=== PATIENT | male | born 1945 | race Caucasian/White ===

== ENCOUNTER → 2019-07-09 | Outpatient (CLI) | payer MEDICARE, SELFPAY | PROVIDERS: Family Provider Family Medicine; Visit Provider Family Medicine | DX: R31.0 Gross hematuria (principal) | CPT/HCPCS: 74018 ==

== ENCOUNTER → 2020-01-09 16:25 | Outpatient (BNVA) | payer MEDICARE, SELFPAY | PROVIDERS: Family Provider Family Medicine; PCP Family Medicine; Visit Provider Family Medicine | DX: R03.0 Elevated blood-pressure reading, without diagnosis of hypertension (principal); R35.1 Nocturia; I71.4 Abdominal aortic aneurysm, without rupture | CPT/HCPCS: 80053; 80061; 83721; 84153; 85025 ==

== ENCOUNTER → 2020-01-10 16:47 | Outpatient (BNVA) | payer MEDICARE, SELFPAY | PROVIDERS: Family Provider Family Medicine; PCP Family Medicine; Visit Provider Family Medicine | DX: R03.0 Elevated blood-pressure reading, without diagnosis of hypertension (principal); R35.1 Nocturia; I71.4 Abdominal aortic aneurysm, without rupture; D64.9 Anemia, unspecified | CPT/HCPCS: 82728; 83550 ==

== ENCOUNTER 2020-01-24 07:04 | Outpatient (CLI) | payer MEDICARE, SELFPAY ==
--- NOTE | 2020-01-24 07:15 | USCV_ITS ---
Sancho Renee Age: 74 Gender: M : 1945 Exam Date: 01/24/2020 07:30 Ordering Phys: Lizzy Short DO Technologist: Liliana Chávez Exam Location: [facility] [place] Indication: AAA HISTORY: Diameter (cm) AP x Transverse x Length Velocity (cm/s) Waveform Prox Aorta: 1.88 x 2.22 x 88.70 Mid Aorta: 2.05 x 2.53 x 67.80 Triphasic Distal Aorta: 4.03 x 4.35 x 6.22 62.80 Triphasic Right Iliac Prox: 1.30 x 1.15 x 140.00 Triphasic Left Iliac Prox: 1.19 x 1.23 x 173.30 Triphasic Stent Prox Landing x x Aneurysmal Sac Max x x Lt Lat Sac Dim Rt Lat Sac Dim Stent Dist Landing x x Right Iliac Stent x x Left Iliac Stent x x Right Renal Art Left Renal Art FINDINGS: Comparison: 05-10-19. See measurements listed above. Fusiform dilatation of the distal abdominal aorta Moderate diffuse plaques in the aorta The length of the aneurysm measured on 05/10/2019 was incorrect. CONCLUSIONS 1. Fusiform aneurysm of the infrarenal aorta measuring 4.03 x 4.35 cm 2. Mild diffuse plaques in the abdominal aorta. 3. Normal proximal common iliac artery dimensions bilaterally No significant change, compared to the study from 05/10/2019 Dr Que Hawley MD [facility] (Electronically Signed) Final Date: 25 January 2020 09:37 S
== END 2020-01-24 07:05 | disposition home or self-care (01) ==
PROVIDERS: Family Provider Family Medicine; PCP Family Medicine; Visit Provider Family Medicine
DX: I71.4 Abdominal aortic aneurysm, without rupture (principal); I71.9 Aortic aneurysm of unspecified site, without rupture
CPT/HCPCS: 93978

== ENCOUNTER → 2020-02-11 10:32 | Outpatient (BNVA) | payer MEDICARE, SELFPAY | PROVIDERS: Family Provider Family Medicine; PCP Family Medicine; Visit Provider Family Medicine | DX: N40.1 Benign prostatic hyperplasia with lower urinary tract symptoms (principal); R35.1 Nocturia; E78.1 Pure hyperglyceridemia; I71.4 Abdominal aortic aneurysm, without rupture | CPT/HCPCS: 80053 ==

== ENCOUNTER 2020-02-21 12:39 | Outpatient (CLI) | payer MEDICARE, SELFPAY ==
--- NOTE | 2020-02-21 13:00 | CT_ITS ---
WS: [id number] CT scan of the abdominal aorta. Additional two-dimensional coronal and sagittal reconstruction was pe rformed. MIP images were also performed. 02/21/2020 Clinical Data: aaa Comparison: None. DLP: 1495.[address] scans at use at least one of these dose optimization techniques: automat ed exposure control; mA and/or kV adjustment per patient size (includes targeted exams where dose is matched to clinical indication); or iterative reconstruction. Findings: There is an infrarenal abdominal aortic aneurysm. It measures 4.2 x 3.9 x 7.8 cm in AP, transverse an d longitudinal dimension, respectively. There is mural thrombus associated with this aneurysm. The ce liac, superior mesenteric, inferior mesenteric and renal arteries are all patent. The left common cata ac artery demonstrates extreme tortuosity. Calcification of the wall of the abdominal aorta and its d istal branches is seen. Abdomen and pelvic findings: The lower lungs show no nodules, masses or effusions. There is a large hiatal hernia. The liver, sple en, pancreas, and adrenal glands are normal. The gallbladder is not seen. The stomach, small bowel an d colon are not remarkable. No appendicitis or diverticulitis is present. No abscess, adenopathy, asc ites, mass, obstruction or free air is seen. The kidneys show excellent bilateral contrast excretion with small renal cortical cysts. No renal hydronephrosis, stones or masses are present. The prostate is enlarged. The bladder is unremarkable. There is a fat-containing left inguinal hernia. There is a subluxation of 1.3 cm of L5 on S1 with degenerative disc findings at L5-S1. 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 CT/CT angio abdomen pelvis [id number] Impression: 1. Infrarenal abdominal aortic aneurysm with greatest AP diameter of 3.9 cm. 2. Negative for acute intra-abdominal or pelvic abnormalities.
[2020-02-21] MEDS: iohexol 350 mg/mL 100 mL Btl IV (13:18)
== END 2020-02-21 12:40 | disposition home or self-care (01) ==
PROVIDERS: Family Provider Family Medicine; PCP Family Medicine; Visit Provider Family Medicine
DX: I71.4 Abdominal aortic aneurysm, without rupture (principal)
CPT/HCPCS: 74174; Q9967

== ENCOUNTER → 2020-04-08 08:51 | Outpatient (BNVA) | payer MEDICARE, SELFPAY | PROVIDERS: Family Provider Family Medicine; PCP Family Medicine; Referring Provider Family Medicine; Visit Provider Urology | DX: N40.1 Benign prostatic hyperplasia with lower urinary tract symptoms (principal); R35.1 Nocturia | CPT/HCPCS: 81001 ==

== ENCOUNTER → 2021-01-29 15:32 | Outpatient (BNVA) | payer MEDICARE, SELFPAY | PROVIDERS: Family Provider Family Medicine; PCP Family Medicine; Visit Provider Family Medicine | DX: Z13.6 Encounter for screening for cardiovascular disorders (principal); R03.0 Elevated blood-pressure reading, without diagnosis of hypertension; E78.1 Pure hyperglyceridemia; D50.9 Iron deficiency anemia, unspecified | CPT/HCPCS: 80053; 80061; 82728; 83550; 85025 ==

== ENCOUNTER → 2021-05-07 08:10 | Outpatient (BNVA) | payer MEDICARE, SELFPAY | PROVIDERS: Family Provider Family Medicine; PCP Family Medicine; Visit Provider Urology | DX: N40.1 Benign prostatic hyperplasia with lower urinary tract symptoms (principal) | CPT/HCPCS: 81003 ==

== ENCOUNTER 2021-06-03 12:50 | Outpatient (CLI) | payer MEDICARE, SELFPAY ==
--- NOTE | 2021-06-03 13:00 | CT_ITS ---
WS: [id number] CTA ABDOMEN TECHNIQUE: Noncontrast plus contrast enhanced CTA of the abdominal aorta with coronal and sagittal re formatted images and additional MIP Images. CLINICAL INFORMATION: aaa COMPARISON: February 21, 2020 DLP: 1375.[address] scans at [facility] use at least one of these dose optimization techniques: automated e xposure control; mA and/or kV adjustment per patient size (includes targeted exams where dose is matc hed to clinical indication); or iterative reconstruction. FINDINGS: Abdominal aortic aneurysm with peripheral mural thrombus. Aneurysm measures approximately 4.5 x 4.2 x 7.8 cm AP by transverse by craniocaudal today compared to 4.2 x 3.9 x 7.8 cm previous.Increased surr ounding mural thrombus compared to the prior examination. Calcification origin of the celiac and SMA which remain patent. Calcification at the renal artery dotty gins bilaterally without flow-limiting stenosis. Mild stenosis in the right and moderate stenosis on the left. Normal renal parenchymal enhancement. No hydronephrosis. Inferior mesenteric artery is scherer nt. Large esophageal hiatal hernia with partial intrathoracic stomach unchanged. Lung bases are well aera jus. A few tiny low-attenuation lesions likely hepatic cysts unchanged. Low-attenuation lesion left h epatic lobe likely focal fat or cavernous hemangioma measuring 2.3 CM. This is unchanged. Normal panc reatic parenchymal enhancement. Adrenal glands are normal. Normal renal parenchymal enhancement. No h ydronephrosis. Bilateral renal cysts. Enlarged calcified prostate unchanged from previous. This measures approximately 5.0 x 4.4 cm with th ickening of the seminal vesicles. Recommend correlation PSA. Associated indentation on the bladder. H eterogeneous nodular prostate enhancement. Fat-containing left inguinal hernia. Diverticulosis. Pelvi c phleboliths. Fat-containing umbilical hernia. Grade 2 anterolisthesis L5 on S1 with chronic spondyl olysis is unchanged. CT/CT angio abdomen pelvis [id number] IMPRESSION: 1. Infrarenal abdominal aortic aneurysm slightly increased compared to previou s with increased peripheral mural thrombus. Aneurysm measures approximately 4.5 x 4.2 x 7.8 cm AP by transverse by craniocaudal today compared to 4.2 x 3.9 x 7.8 cm previous. 2. Celiac and SMA are patent. 3. Large esophageal hiatal hernia with partial thoracic stomach. 4. Heterogenous enhancing enlarged prostate with thickening of the seminal ves icles bilaterally. Recommend correlation PSA. Findings suspicious for neoplasia /hyperplasia. 5. Fat-containing left inguinal hernia. 6. Diverticulosis. 7. Low-attenuation lesion left hepatic lobe measuring 2.3 cm likely focal fat or hemangioma. This could be further evaluated with ultrasound. This is unchang ed from previous. 8. Grade 2 anterolisthesis L5 on S1 with chronic spondylolysis is unchanged.
== END 2021-06-03 12:51 | disposition home or self-care (01) ==
PROVIDERS: PCP Family Medicine; Visit Provider Thoracic Surgery (Cardiothoracic Vascular Surgery)
DX: I71.4 Abdominal aortic aneurysm, without rupture (principal); K44.9 Diaphragmatic hernia without obstruction or gangrene; N40.0 Benign prostatic hyperplasia without lower urinary tract symptoms; K40.90 Unilateral inguinal hernia, without obstruction or gangrene, not specified as recurrent; K57.90 Diverticulosis of intestine, part unspecified, without perforation or abscess without bleeding; K76.9 Liver disease, unspecified
CPT/HCPCS: 74174; 82565; 84520

== ENCOUNTER → 2021-09-17 10:36 | Outpatient (BNVA) | payer MEDICARE, SELFPAY | PROVIDERS: PCP Family Medicine; Visit Provider Nurse Practitioner Family | DX: Z20.822 Contact with and (suspected) exposure to COVID-19 (principal) | CPT/HCPCS: 87635 ==

== ENCOUNTER 2021-10-16 10:03 | Outpatient (CLI) | payer MEDICARE, SELFPAY ==
--- NOTE | 2021-10-16 10:15 | XR_ITS ---
WS: [id number] XR hand RT min 3V* [id number] REASON FOR EXAM: right fourth digit pain FINDINGS: Mild to moderate joint space narrowing with subchondral sclerosis and small marginal osteophytes in t he DIP joints of the fingers and thumb. There is soft tissue swelling of the fourth finger. There is similar arthropathic change in the proximal interphalangeal joint. However, there is also an avulsion fracture of the dorsum of the proximal middle phalanx extending into the joint space. XR/XR hand RT min 3V* [id number] IMPRESSION: Fracture of the fourth finger as above. 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
== END 2021-10-16 10:04 | disposition home or self-care (01) ==
PROVIDERS: PCP Family Medicine; Visit Provider Family Medicine
DX: S62.604A Fracture of unspecified phalanx of right ring finger, initial encounter for closed fracture (principal); X58.XXXA Exposure to other specified factors, initial encounter; M19.041 Primary osteoarthritis, right hand
CPT/HCPCS: 73130

== ENCOUNTER → 2021-10-23 09:43 | Outpatient (BNVA) | payer MEDICARE, SELFPAY | PROVIDERS: PCP Family Medicine; Visit Provider Thoracic Surgery (Cardiothoracic Vascular Surgery) | DX: I71.4 Abdominal aortic aneurysm, without rupture (principal); Z87.891 Personal history of nicotine dependence | CPT/HCPCS: 99213 ==

== ENCOUNTER → 2021-10-27 10:58 | Outpatient (BNVA) | payer MEDICARE, SELFPAY | PROVIDERS: PCP Family Medicine; Referring Provider Family Medicine; Visit Provider Orthopaedic Surgery | DX: S62.604A Fracture of unspecified phalanx of right ring finger, initial encounter for closed fracture (principal); W31.89XA Contact with other specified machinery, initial encounter; Z87.891 Personal history of nicotine dependence | CPT/HCPCS: 99203 ==

== ENCOUNTER 2021-12-04 08:35 | Outpatient (CLI) | payer MEDICARE, SELFPAY ==
--- NOTE | 2021-12-04 08:45 | USCV_ITS ---
Víctor Sancho Age: 76 Gender: M : 1945 Exam Date: 12/04/2021 08:49 Ordering Phys: Cj Childs MD (Andy) ([email or web address]) Technologist: Scott Wheeler [place] [facility] [place]ication: AAA HISTORY: Diameter (cm) AP x Transverse x Length Velocity (cm/s) Waveform Prox Aorta: 2.48 x 2.48 x 110.90 Mid Aorta: 2.43 x 2.72 x 71.10 Distal Aorta: 4.27 x 4.79 x 50.40 Right Iliac Prox: 1.08 x 1.16 x 203.30 Left Iliac Prox: 1.06 x 1.18 x 188.40 Stent Prox Landing x x Aneurysmal Sac Max x x Lt Lat Sac Dim Rt Lat Sac Dim Stent Dist Landing x x Right Iliac Stent x x Left Iliac Stent x x Right Renal Art Left Renal Art FINDINGS: Fusiform dilatation of the infrarenal aorta measuring 4.27 x 4.79 cm Organized circumferential thrombus causing around 40% reduction in the luminal diameter Elevated velocities with the flow turbulence in the proximal common iliac arteries bilaterally CONCLUSIONS 1. Infrarenal fusiform abdominal aortic aneurysm, measuring 4.27 x 4.79 cm. 2. Organized circumferential thrombus in the aneurysm causing around 40% reduction of the diameter 3. Elevated velocities in the proximal common iliac arteries bilaterally, suggesting greater than 50% stenosis. 4. Normal proximal, common iliac artery dimensions with no evidence of aneurysm Compared to the study from 01/24/2020, there is slight increase in the size of the aneurysm of the aorta(4.03 x 4.35 to 4.27 x 4.79) Revised copy Dr Que Hawley MD [facility] (Electronically Signed) Final Date: 04 Dec 2021 11:54 Amended: 04 Dec 2021 11:57 C
== END 2021-12-04 08:36 | disposition home or self-care (01) ==
PROVIDERS: PCP Family Medicine; Visit Provider Thoracic Surgery (Cardiothoracic Vascular Surgery)
DX: I71.4 Abdominal aortic aneurysm, without rupture (principal)
CPT/HCPCS: 93978

== ENCOUNTER → 2021-12-22 10:51 | Outpatient (BNVA) | payer MEDICARE, SELFPAY | PROVIDERS: PCP Family Medicine; Visit Provider Family Medicine | DX: D50.9 Iron deficiency anemia, unspecified (principal); I10 Essential (primary) hypertension; R53.83 Other fatigue | CPT/HCPCS: 80053; 80061; 82728; 83550; 84443; 85025 ==

== ENCOUNTER → 2021-12-24 11:32 | Outpatient (BNVA) | payer MEDICARE, SELFPAY | PROVIDERS: PCP Family Medicine; Visit Provider Family Medicine | DX: D50.9 Iron deficiency anemia, unspecified (principal); I10 Essential (primary) hypertension; R53.83 Other fatigue | CPT/HCPCS: 80053; 80061; 82728; 83550; 84443; 85025 ==

== ENCOUNTER → 2022-01-07 09:25 | Outpatient (BNVA) | payer MEDICARE, SELFPAY | PROVIDERS: PCP Family Medicine; Visit Provider Thoracic Surgery (Cardiothoracic Vascular Surgery) | DX: I71.4 Abdominal aortic aneurysm, without rupture (principal) | CPT/HCPCS: 99213 ==

== ENCOUNTER 2022-05-06 08:22 | Outpatient (CLI) | payer MEDICARE, SELFPAY | END 2022-05-06 08:23 | disposition home or self-care (01) | LOC: LAB 08:24 | PROVIDERS: PCP Family Medicine; Visit Provider Urology | DX: Z12.5 Encounter for screening for malignant neoplasm of prostate (principal); N40.1 Benign prostatic hyperplasia with lower urinary tract symptoms; G47.9 Sleep disorder, unspecified | CPT/HCPCS: 36415; 51741; 51798; 81003; 99213; G0103 ==

== ENCOUNTER 2022-05-12 09:50 | Outpatient (CLI) | payer MEDICARE, SELFPAY ==
--- NOTE | 2022-05-12 10:30 | CT_ITS ---
WS: [id number] CTA ABDOMEN PELVIS TECHNIQUE: Contrast enhanced CTA of the abdominal aorta and pelvis with coronal and sagittal reformat jus images and additional MIP Images. CLINICAL INFORMATION: AAA COMPARISON: June 03, 2021 DLP: 891.[address] scans at [facility] use at least one of these dose optimization techniques: automated e xposure control; mA and/or kV adjustment per patient size (includes targeted exams where dose is matc hed to clinical indication); or iterative reconstruction. FINDINGS:Moderate aortic atheromatous disease. Celiac and SMA are patent. Proximal renal arteries are patent. Fusiform infrarenal abdominal aortic aneurysm with peripheral mural thrombus. Aneurysm measu res approximately 4.4 x 4.3 x 7.8 CM. Tortuous calcified common iliac arteries are patent. Large esophageal hiatal hernia. Slight atelectasis/fibrosis in the lung bases. Cyst or cavernous nanda ngioma in the LEFT hepatic lobe measuring 2.3 CM. This is unchanged. Otherwise normal liver parenchym al enhancement. Gallbladder is contracted. Normal splenic enhancement. Normal pancreatic parenchymal enhancement. Normal common bile duct. Adrenal glands are normal. Normal renal parenchymal enhancement. No hydronephrosis. Small RIGHT renal cyst. Fat-containing LEFT inguinal hernia. Enlarged prostate with indentation on the bladder. Prosta te measures 4.0 x 4.6 x 5.5 CM. Thickening of the seminal vesicles bilaterally. Recommend correlation PSA. Sigmoid diverticulosis. No evidence of acute diverticulitis. No evidence of high-grade small or large bowel obstruction. Fat-containing umbilical hernia. Grade 1-2 anterolisthesis L5 on S1 measuring 11 mm with chronic spon dylolysis. CT/CT angio abdomen pelvis [id number] IMPRESSION: 1. Stable infrarenal abdominal aortic aneurysm with peripheral mural thrombus. Today this measures 4.4 x 4.3 x 7.8 cm AP by transverse by craniocaudal. No si gnificant changes. 2. Celiac and SMA are patent. 3. Markedly enlarged prostate with heterogeneous enhancement and thickening of the seminal vesicles. Indentation on the bladder. Recommend correlation with P SA. Findings are suspicious for neoplasia/hyperplasia. 4. Grade 1-2 anterolisthesis L5 on S1 with chronic spondylolysis. 5. Stable cavernous hemangioma or cyst in the LEFT hepatic lobe. 6. Large esophageal hiatal hernia is stable.
[2022-05-12 10:56] LABS: Blood Urea Nitrogen 24 mg/dL (8-23)
[2022-05-12] MEDS: iohexol 350 mg/mL 100 mL Btl IV (11:04)
== END 2022-05-12 09:51 | disposition home or self-care (01) ==
PROVIDERS: PCP Family Medicine; Visit Provider Thoracic Surgery (Cardiothoracic Vascular Surgery)
DX: I71.40 Abdominal aortic aneurysm, without rupture, unspecified (principal); I51.3 Intracardiac thrombosis, not elsewhere classified
CPT/HCPCS: 74174; 82565; 84520

== ENCOUNTER → 2022-05-13 10:56 | Outpatient (BNVA) | payer MEDICARE, SELFPAY | PROVIDERS: PCP Family Medicine; Visit Provider Thoracic Surgery (Cardiothoracic Vascular Surgery) | DX: I71.43 Infrarenal abdominal aortic aneurysm, without rupture (principal) | CPT/HCPCS: 99213 ==

== ENCOUNTER → 2022-06-28 11:53 | Outpatient (BNVA) | payer MEDICARE, SELFPAY | PROVIDERS: PCP Family Medicine; Visit Provider Family Medicine | DX: R30.0 Dysuria (principal); J18.9 Pneumonia, unspecified organism; D50.9 Iron deficiency anemia, unspecified | CPT/HCPCS: 71046; 80053; 81000; 82728; 83550; 85025; 87086 ==

== ENCOUNTER → 2022-07-20 15:18 | Outpatient (BNVA) | payer MEDICARE, SELFPAY | PROVIDERS: PCP Family Medicine; Visit Provider Family Medicine | DX: D50.9 Iron deficiency anemia, unspecified (principal); H66.93 Otitis media, unspecified, bilateral; R06.2 Wheezing; N52.9 Male erectile dysfunction, unspecified | CPT/HCPCS: 82728; 83550; 85025 ==

== ENCOUNTER 2022-10-11 11:49 | Outpatient (CLI) | payer MEDICARE, SELFPAY ==
--- NOTE | 2022-10-11 11:55 | USCV_ITS ---
Víctor Sancho Age: 76 Gender: M : 1945 Exam Date: 10/11/2022 12:42 Ordering Phys: Cj Childs MD ([place]) [email or web address] Technologist: KAREEM [place] [facility] [place]: AAA HISTORY: Diameter (cm) AP x Transverse x Length Velocity (cm/s) Waveform Prox Aorta: 1.95 x 2.09 x 84.30 Triphasic Mid Aorta: 2.62 x 2.79 x 53.70 Triphasic Distal Aorta: 4.64 x 4.20 x 9.51 23.80 Monophasic Right Iliac Prox: 0.88 x 0.94 x 140.00 Triphasic Left Iliac Prox: 0.92 x 1.18 x 133.10 Triphasic Stent Prox Landing x x Aneurysmal Sac Max x x Lt Lat Sac Dim Rt Lat Sac Dim Stent Dist Landing x x Right Iliac Stent x x Left Iliac Stent x x Right Renal Art Left Renal Art FINDINGS: Comparison:. 12/04/21. A fusiform abdominal aortic aneurysm is noted with a maximal diameter of 4.6 cm. AAA extends over a length of 9.5 cm. Asymmetric soft plaque in the aneurysm. There is evidence of atherosclerotic plaque no significan stenosis in the right common iliac artery. There is evidence of atherosclerotic plaque no significan stenosis in the left common iliac artery. CONCLUSIONS A fusiform abdominal aortic aneurysm is noted with a maximal diameter of 4.6 cm. No progression in size. Asymmetric plaque in the aneurysm. Dr. Margot Baldwin DO (Electronically Signed) Final Date: 11 October 2022 13:19 S
== END 2022-10-11 11:50 | disposition home or self-care (01) ==
LOC: RAD 11:51
PROVIDERS: PCP Family Medicine; Visit Provider Thoracic Surgery (Cardiothoracic Vascular Surgery)
DX: I71.40 Abdominal aortic aneurysm, without rupture, unspecified (principal)
CPT/HCPCS: 93978

== ENCOUNTER → 2023-04-12 11:56 | Outpatient (BNVA) | payer MEDICARE, SELFPAY | PROVIDERS: PCP Family Medicine; Visit Provider Family Medicine | DX: I10 Essential (primary) hypertension (principal); M54.42 Lumbago with sciatica, left side | CPT/HCPCS: 80053; 80061; 82043; 85025 ==

== ENCOUNTER 2023-04-25 10:58 | Outpatient (CLI) | payer MEDICARE, SELFPAY ==
--- NOTE | 2023-04-25 11:07 | XRR_ITS ---
PROCEDURE INFORMATION: Exam: XR Lumbosacral Spine Exam date and time: 04/25/2023 11:11 AM Age: 77 years old Clinical indication: Low back pain; Patient HX: 2 weeks of lower back pain and left hip pain TECHNIQUE: Imaging protocol: Radiologic exam of the lumbosacral spine. Views: 2 or 3 views. COMPARISON: CT angio abdomen pelvis [id number] 05/12/2022 10:54 AM FINDINGS: Bones/joints: No acute fracture. Mild dextroconvex curvature. Stable great 2 anterolisthesis of L5 on S1 in the setting of bilateral L5 pars interarticularis defects. Moderate intervertebral disc space narrowing and osteophyte formation at this level. Mild intervertebral disc space narrowing and osteophyte formation at L3-L4 and L4-L5. Severe left and mild right hip degenerative changes, stable. Soft tissues: Unremarkable. Vasculature: Systemic atherosclerotic calcification. XR/XR lumbar spine 2-3V* [id number] IMPRESSION: 1. No acute findings. 2. Stable lumbar spine degenerative changes greatest at L5-S1 with grade 2 isthmic anterolisthesis. 3. Stable severe left and mild right hip degenerative changes.
== END 2023-04-25 10:59 | disposition home or self-care (01) ==
PROVIDERS: PCP Family Medicine; Visit Provider Family Medicine
DX: M47.817 Spondylosis without myelopathy or radiculopathy, lumbosacral region (principal); M54.42 Lumbago with sciatica, left side; M16.0 Bilateral primary osteoarthritis of hip
CPT/HCPCS: 72100

== ENCOUNTER 2023-05-05 09:08 | Outpatient (CLI) | payer MEDICARE, SELFPAY ==
--- NOTE | 2023-05-05 09:15 | USCV_ITS ---
Víctor Sancho Age: 77 Gender: M : 1945 Exam Date: 05/05/2023 09:28 Ordering Phys: Cj Childs MD (Andy) ([email or web address]) Technologist: KAREEM Exam Location: [facility] [place] Indication: AAA HISTORY: Diameter (cm) AP x Transverse x Length Velocity (cm/s) Waveform Prox Aorta: 2.10 x 2.09 x 91.70 Triphasic Mid Aorta: 2.06 x 2.26 x 50.40 Triphasic Distal Aorta: 4.84 x 4.63 x 8.47 26.50 Monophasic Right Iliac Prox: 0.93 x 1.44 x 146.90 Triphasic Left Iliac Prox: 0.98 x 1.34 x 169.10 Triphasic Stent Prox Landing x x Aneurysmal Sac Max x x Lt Lat Sac Dim Rt Lat Sac Dim Stent Dist Landing x x Right Iliac Stent x x Left Iliac Stent x x Right Renal Art Left Renal Art FINDINGS: Comparison:. 10/11/22 AAA diameter has increased by 2 mm since the prior exam. A fusiform abdominal aortic aneurysm is noted with a maximal diameter of 4.8 cm. asymmetric intraluminal thrombus. There is evidence of atherosclerotic plaque no significan stenosis in the right common iliac artery. There is evidence of atherosclerotic plaque no significan stenosis in the left common iliac artery. CONCLUSIONS A fusiform abdominal aortic aneurysm is noted with a maximal diameter of 4.8 cm. Increase in size by 2mm since the prior exam. Dr. Margot Baldwin DO (Electronically Signed) Final Date: 05 May 2023 11:47 S
== END 2023-05-05 09:09 | disposition home or self-care (01) ==
LOC: RAD 09:09
PROVIDERS: PCP Family Medicine; Visit Provider Thoracic Surgery (Cardiothoracic Vascular Surgery)
DX: I71.40 Abdominal aortic aneurysm, without rupture, unspecified (principal)
CPT/HCPCS: 93978

== ENCOUNTER → 2023-05-12 13:17 | Outpatient (BNVA) | payer MEDICARE, SELFPAY | PROVIDERS: PCP Family Medicine; Visit Provider Thoracic Surgery (Cardiothoracic Vascular Surgery) | DX: I71.40 Abdominal aortic aneurysm, without rupture, unspecified (principal) | CPT/HCPCS: 99213 ==

== ENCOUNTER 2023-07-21 13:11 | Outpatient (CLI) | payer MEDICARE, SELFPAY ==
--- NOTE | 2023-07-21 14:00 | CT_ITS ---
WS: [id number] CTA ABDOMEN PELVIS TECHNIQUE: Contrast enhanced CTA of the abdominal aorta with coronal and sagittal reformatted images and additional MIP Images. CLINICAL INFORMATION: AAA COMPARISON: 05/12/2022 DLP: 514.[address] scans at [facility] use at least one of these dose optimization techniques: automated e xposure control; mA and/or kV adjustment per patient size (includes targeted exams where dose is matc hed to clinical indication); or iterative reconstruction. FINDINGS: Fusiform infrarenal abdominal aortic aneurysm with peripheral mural thrombus. Aneurysm measures appro ximately 4.6 x 4.8 x 7.8 cm compared to 4.4 x 4.3 x 7.8 CM previously. This measures a few millimeter s larger today but not significantly changed. Moderate aortic atheromatous disease. Celiac and SMA ar e patent. Proximal renal arteries are patent Adrenal glands are normal. A few tiny hepatic cysts unchanged. Gallbladder is contracted. Noncalcifie d nodule in the RIGHT middle lobe measuring 6 mm. Bibasilar atelectasis. Calcified granuloma LEFT low er lobe. Normal renal parenchymal enhancement. Small renal cysts. Normal spleen. Sigmoid diverticulosis. Diffuse heterogeneous enhancement and enlargement the prostate with bladder o utlet obstruction. Thickening of the seminal vesicles. Findings suspicious for neoplasia. Recommend c orrelation PSA. Fat-containing LEFT inguinal hernia. Stable grade 1-2 anterolisthesis L5 on S1 with c hronic spondylolysis. IMPRESSION: 1. Fusiform infrarenal abdominal aortic aneurysm measures approximately 4.6 x 4.8 x 7.8 cm compared to 4.4 x 4.3 x 7.8 CM previously. This measures a few millimeters larger today but not significantly changed. 2. Celiac and SMA are patent. 3. Large esophageal hiatal hernia. 4. Marked diffuse heterogeneous enhancement and enlargement of the prostate with bladder outlet obst ruction. Thickening of the seminal vesicles. Findings suspicious for neoplasia. Recommend correlation PSA. 5. Sigmoid diverticulosis. 6. Noncalcified nodule in the RIGHT middle lobe measuring 6 mm. Recommend 6-month follow-up chest CT .
[2023-07-21 14:19] LABS: Blood Urea Nitrogen 15 mg/dL (8-23)
[2023-07-21] MEDS: iohexol 350 mg/mL 500 mL Btl (per mL) IV (14:25)
== END 2023-07-21 13:12 | disposition home or self-care (01) ==
LOC: RAD 13:12
PROVIDERS: PCP Family Medicine; Visit Provider Thoracic Surgery (Cardiothoracic Vascular Surgery)
DX: I71.43 Infrarenal abdominal aortic aneurysm, without rupture (principal); K44.9 Diaphragmatic hernia without obstruction or gangrene; K57.30 Diverticulosis of large intestine without perforation or abscess without bleeding; R91.1 Solitary pulmonary nodule
CPT/HCPCS: 74174; 82565; 84520; Q9967

== ENCOUNTER → 2024-03-19 10:22 | Outpatient (BNVA) | payer MEDICARE, SELFPAY | PROVIDERS: PCP Family Medicine Adult Medicine; Visit Provider Nurse Practitioner Family | DX: Q25.46 Tortuous aortic arch (principal); K44.9 Diaphragmatic hernia without obstruction or gangrene; J84.10 Pulmonary fibrosis, unspecified; M47.894 Other spondylosis, thoracic region | CPT/HCPCS: 71046 ==

== ENCOUNTER → 2024-03-27 13:55 | Outpatient (BNVA) | payer MEDICARE, SELFPAY | PROVIDERS: PCP Family Medicine Adult Medicine; Visit Provider Nurse Practitioner Family | DX: K44.9 Diaphragmatic hernia without obstruction or gangrene (principal); R05.9 Cough, unspecified | CPT/HCPCS: 71046 ==

== ENCOUNTER 2024-04-27 15:05 | Outpatient (CLI) | payer MEDICARE, SELFPAY ==
--- NOTE | 2024-04-27 15:11 | MR_ITS ---
WS: [id number] MRI HEAD WITH CONTRAST WITH ATTENTION TO THE INTERNAL AUDITORY CANALS TECHNIQUE: Sagittal T1, T2 axial, T2 axial flair, axial susceptibility weighted imaging, axial diffus ion weighted images, and coronal T2 images were obtained. Pre and post T1 axial and post T1 coronal i mages. ADC and FSPGR images. Post gadolinium images with attention to the internal auditory canals. A xial fiesta imaging. CLINICAL INFORMATION: SENSORINEURAL HEARING LOSS, BILATERAL COMPARISON: None. FINDINGS: No evidence of restricted diffusion to suggest acute ischemia. No hemosiderin on the susceptibility w eighted images. Moderate small vessel changes with moderate parenchymal volume loss. Small vessel nicole nges in the rai. Normal posterior fossa normal vascular flow voids at the skull base. No extra-axial fluid collections. No evidence of mass or mass effect. Paranasal sinuses and mastoid air cells well aerated. Small retention cyst RIGHT maxillary sinus. Proximal 7th and 8th cranial nerves are normal. Normal trigeminal nerve root entry zones. No evidence of enhancing IAC or CP angle mass. Normal optic chiasm and pituitary infundibulum. No abnormal intracranial enhancement. Normal dural ve nous sinuses. MR/MR iac's wo/w con* [id number] IMPRESSION: 1. No evidence of restricted diffusion to suggest acute ischemia. 2. Moderate small vessel changes with moderate parenchymal volume loss. Small vessel changes in the rai. 3. Proximal 7th and 8th cranial nerves are normal in appearance. No evidence o f enhancing IAC or CP angle mass. 4. Paranasal sinuses and mastoid air cells are well aerated. Small retention c yst RIGHT maxillary sinus measuring 12 mm. 5. No other acute findings.
[2024-04-27] MEDS: gadobenate dimeglumine 20 mL vial 18 ML IV (16:21)
== END 2024-04-27 15:06 | disposition home or self-care (01) ==
LOC: RAD 15:09
PROVIDERS: PCP Family Medicine Adult Medicine; Visit Provider Specialist
DX: H90.3 Sensorineural hearing loss, bilateral (principal); G31.9 Degenerative disease of nervous system, unspecified; J34.1 Cyst and mucocele of nose and nasal sinus
CPT/HCPCS: 70553

== ENCOUNTER 2024-05-23 13:26 | Inpatient (IN) | payer MEDICARE, SELFPAY ==
[2024-05-23] VITALS (16 sets, daily range): BP systolic 106–151; BP diastolic 65–84; PULSE 75–86; RESP 15–26; TEMP 36.9–37.3; O2SAT 91–98; BMI 29.7; BMI 30.7
--- NOTE | 2024-05-23 13:43 | W.ED.NEUROSD ---
HPI - Neuro Symptoms/Deficit General: Chief Complaint: Neuro Symptoms/Deficit Stated Complaint: Sudden onset vertigo, N/V Time Seen by Provider: 05/23/24 13:33 History of Present Illness: 78-year-old male presents emergency room with sudden onset of nausea and vomiting approximately an hour and a half prior to arrival. He had also severe dizziness with that he had a similar episode a couple days ago it resolved. He has had other episodes in the past he usually treats with meclizine. He states this episode was much more intense. Even with rest closing his eyes and not moving he still feels extremely dizzy he has vomited several times. He denies chest pain or abdominal pain no other symptoms Associated symptoms: Reports nausea, vertigo and vomiting; Deny chest pain Related Data Home Medications Medication Instructions Recorded Confirmed acetaminophen 325 mg tablet 650 mg PO QID PRN Pain 05/23/24 05/23/24 (Tylenol) amlodipine 5 mg tablet 5 mg PO DAILY 05/23/24 05/23/24 meclizine 25 mg tablet 25 mg PO BID PRN Nausea And 05/23/24 05/23/24 Vomiting Previous Rx's Medication Instructions Recorded ondansetron 4 mg disintegrating 4 mg PO Q8H nausea and vomiting 12/29/23 tablet #30 tabs sildenafil (pulm.hypertension) 20 20 mg PO .COMPLEX #30 tabs 12/29/23 mg tablet tamsulosin 0.4 mg capsule 0.4 mg PO BID #180 caps 12/29/23 fluticasone propionate 50 1 spray intranasal BID PRN nasal 03/13/24 mcg/actuation nasal congestion #16 grams spray,suspension (Flonase Allergy Relief) Allergies Allergy/AdvReac Type Severity Reaction Status Date / Time No Known Allergies Allergy Verified 03/27/24 13:27 Review of Systems Const: Denies: fever(s) or chills Card: Denies: chest pain Resp: Denies: dyspnea GI: Reports: nausea and vomiting; Denies: abdominal pain : Denies: dysuria, urinary frequency or urinary urgency Musc: Denies: neck pain or back pain Skin/Breast: Denies: rash Neuro: Reports: dizziness and vertigo PFS ED PFSH: Medical History BCC (basal cell carcinoma), face M?ni?re's syndrome or vertigo Renal calculi BPH loc w urin obs/LUTS AAA (abdominal aortic aneurysm) Surgical History History of excision of lesion skin cancer hand H/O inguinal hernia repair right H/O knee surgery S/P tonsillectomy S/P appendectomy History of lithotripsy Family History Mother , at age 88 Aortic aneurysm Father , in his 80's Arthritis Other AAA (abdominal aortic aneurysm) Cancer Hypertension Social History Smoking and tobacco/nicotine status: former use of tobacco/nicotine Quit status (tobacco/nicotine): has quit using Year quit tobacco: 1999 Alcohol intake: never Substance/Drug Use: never Marital status: / Current occupational status: retired NIH stroke score NIHSS: Level Of Consciousness - 1a: 0 Level Of Consciousness Questions - 1b: Both Correct Level Of Consciousness Commands - 1c: Both Correct Best Gaze - 2: Normal Visual Roland - 3: No Visual Loss Facial Palsy - 4: Normal Motor Arm Right - 5: No Drift Motor Arm Left - 5: No Drift Motor Leg Right - 6: No Drift Motor Leg Left - 6: No Drift Limb Ataxia - 7: Absent Sensory - 8: Normal Best Language - 9: No Aphasia Dysarthia - 10: Normal Extinction And Inattention - 11: 0 Score: Total Score: 0 Physical Exam Const: COMMON NORMALS: no acute distress GENERAL APPEARANCE: cooperative and comfortable ORIENTATION/CONSCIOUSNESS: Yes awake, Yes oriented to person, Yes oriented to place and Yes oriented to time HENMT: COMMON NORMALS: normocephalic, atraumatic and hearing grossly normal bilaterally HEAD & SCALP: normocephalic and atraumatic Resp: COMMON NORMALS: normal respiratory effort, No retractions, No use of accessory muscles and clear to auscultation bilaterally AUSCULTATION: clear to auscultation bilaterally Cardio: COMMON NORMALS: regular rate, regular rhythm and No murmurs present (Cardio) RATE: regular rate RHYTHM: regular rhythm GI: COMMON NORMALS: Soft to palpation and No hepatosplenomegaly present AUSCULTATION: Yes normoactive bowel sounds PALPATION: Yes Soft to palpation, No Tenderness to palpation present (GI), No Guarding due to palpation present (GI) and Yes No hepatosplenomegaly present Extremity: COMMON NORMALS: normal to inspection, capillary refill normal, no clubbing, cyanosis or edema, no calf tenderness and no pedal edema Neuro: SENSORIUM/ORIENTATION: Yes oriented to person, Yes oriented to place and Yes oriented to time Skin: COMMON NORMALS: no rashes or lesions noted GENERAL SKIN EXAM: no rashes or lesions noted Course Vital Signs: Vital signs: Vital Signs Temperature 98.7 F 05/23/24 14:10 Pulse Rate 83 05/23/24 13:29 Respiratory Rate 26 H 05/23/24 13:29 Blood Pressure 133/65 05/23/24 13:29 Pulse Oximetry 92 05/23/24 13:29 Oxygen Delivery Me thod Nasal Cannula 05/23/24 13:29 Oxygen Flow Rate 3 05/23/24 13:29 MDM - Neuro Symptoms/Deficit Medical Decision Making Initial evaluation patient stroke score is 0 he does have persistent nausea and vomiting with severe vertiginous-like symptoms. Concerning for potential posterior circulation CVA. He has had this in the past however that he is treated with colchicine and was much less intense than today's episode. Lab Data 05/23/24 14:03 05/23/24 14:03 Radiology Impressions Chest X-Ray 05/23/24 13:44 Impression: Negative chest. Head CT 05/23/24 13:44 IMPRESSION: 1. No acute intracranial hemorrhage or edema. 2. Mild atrophy with small vessel ischemic disease. 3. Prior lacunar infarcts LEFT external capsule and towards the RIGHT frontal vertex. Notified Selvin Coleman DO at 05/23/2024 1:57 PM. Laboratory Results WBC 16.37 10^3/uL (3.29-11.43) H 05/23/24 14:03 RBC 4.42 10^6/uL (3.85-5.65) 05/23/24 14:03 Hgb 8.40 g/dL (11.27-16.99) L 05/23/24 14:03 Hct 31.4 % (37-53) L 05/23/24 14:03 MCV 71.0 fl (82-101) L 05/23/24 14:03 MCH 19.0 pg (27-33) L 05/23/24 14:03 MCHC 26.8 g/dL (30-55) L 05/23/24 14:03 RDW 21.2 % (12.1-15.1) H 05/23/24 14:03 Plt Count 399 10^3/cmm (157-399) 05/23/24 14:03 MPV 8.2 fL (7.4-10.4) 05/23/24 14:03 Neut % (Auto) 85.2 % 05/23/24 14:03 Lymph % (Auto) 5.8 % 05/23/24 14:03 [place] % (Auto) 7.8 % 05/23/24 14:03 Eos % (Auto) 0.1 % 05/23/24 14:03 Baso % (Auto) 0.4 % 05/23/24 14:03 Neut # (Auto) 13.94 10^3/uL (1.8-7.7) H 05/23/24 14:03 Lymph # (Auto) 1.0 10^3/uL (0.8-4.8) 05/23/24 14:03 [place] # (Auto) 1.3 10^3/uL (0.2-0.9) H 05/23/24 14:03 Eos # (Auto) 0.0 10^3/uL (0.0-0.8) 05/23/24 14:03 Baso # (Auto) 0.1 10^3/uL (0.0-0.1) 05/23/24 14:03 Nucleated RBC % (auto) 0 % 05/23/24 14:03 Nucleated RBCs # 0.0 /100WBC 05/23/24 14:03 PT 14.10 SECONDS (12.1-14.9) 05/23/24 14:03 INR 1.06 (0.8-1.2) 05/23/24 14:03 APTT 25.1 SECONDS (23.9-36.7) 05/23/24 14:03 Sodium 139 mmol/L (136-145) 05/23/24 14:03 Potassium 4.0 mmol/L (3.5-5.1) 05/23/24 14:03 Chloride 101 mmol/L (98-107) 05/23/24 14:03 Carbon Dioxide 26 mmol/L (22-29) 05/23/24 14:03 Anion Gap 16.0 (5-19) 05/23/24 14:03 BUN 14 mg/dL (8-23) 05/23/24 14:03 Creatinine 0.9 mg/dL (0.7-1.2) 05/23/24 14:03 GFR Calculation Not Reportable 05/23/24 14:03 Glucose 214 mg/dL (65-115) H 05/23/24 14:03 POC Glucose 220 mg/dL (70-110) H 05/23/24 13:48 Calculated Osmolality 295 mOsm/kg (285-295) 05/23/24 14:03 Calcium 8.9 mg/dL (8.5-10.5) 05/23/24 14:03 Total Bilirubin 0.2 mg/dL (0.15-1.2) 05/23/24 14:03 AST 10 U/L (0-40) 05/23/24 14:03 ALT 8 U/L (0-41) 05/23/24 14:03 Alkaline Phosphatase 66 U/L (40-130) 05/23/24 14:03 Total Protein 7.3 g/dL (6.6-8.7) 05/23/24 14:03 Albumin 4.4 g/dL (3.5-5.2) 05/23/24 14:03 Globulin 2.9 g/dL (1.3-4.6) 05/23/24 14:03 Discharge Plan Discharge Condition: Stable Prescriptions: No Action ondansetron 4 mg tablet,disintegrating 4 mg PO Q8H Qty: 30 1RF sildenafil (pulm.hypertension) 20 mg tablet 20 mg PO .COMPLEX Qty: 30 0RF Rx Instructions: 1-5 pills taken 1 hour before sexual activity. Take on empty stomach tamsulosin 0.4 mg capsule 0.4 mg PO BID Qty: 180 3RF fluticasone propionate [Flonase Allergy Relief] 50 mcg/actuation spray,suspension 1 spray intranasal BID PRN (Reason: nasal congestion) Qty: 16 0RF Rx Instructions: administer into each nostril acetaminophen [Tylenol] 325 mg Tablet 650 mg PO QID PRN (Reason: Pain) amlodipine 5 mg tablet 5 mg PO [facility]ILY [facility] mg Tablet 25 mg PO BID PRN (Reason: Nausea And Vomiting) Referrals: Gordon Holt MD [Primary Care Provider] - Coding Level of Care Code ED Pond Tender for Savanah Hardin
--- NOTE | 2024-05-23 13:44 | CT_ITS ---
WS: [id number] CT HEAD NONCONTRAST HISTORY: Symptoms of acute stroke TECHNIQUE: Contiguous axial imaging performed through the brain. Bone and soft tissue windows. Sagitt al and coronal reformats reviewed. All CT scans at [facility] use at least one of these dose optimization techniques: automated exposure control; mA and/or kV adjustment per patient size (includ es targeted exams where dose is matched to clinical indication); or iterative reconstruction. DLP: 1110.38 mGy COMPARISON: None available. No acute intracranial hemorrhage, midline shift or mass effect. Mild atrophy and small vessel disease. Prior lacunar infarct LEFT external capsule. Additional prior ischemic changes towards the posterior RIGHT frontal vertex. Ventricles: Normal size with no hydrocephalus. No inferior displacement of the cerebellar tonsils. Paranasal sinuses: As visualized are clear. Mastoid air cells: Well pneumatized. Calvarium and scalp: Skull is intact with no soft tissue edema or swelling. Dense calcification in the intracranial carotid arteries. CT/CT head thrombolytic [id number] IMPRESSION: 1. No acute intracranial hemorrhage or edema. 2. Mild atrophy with small vessel ischemic disease. 3. Prior lacunar infarcts LEFT external capsule and towards the RIGHT frontal vertex. Notified Selvin Coleman DO at 05/23/2024 1:57 PM.
--- NOTE | 2024-05-23 13:44 | XR_ITS ---
WS: [id number] Portable AP upright chest, 05/23/2024 Clinical Data: dyspnea/cough Comparison: Two-view chest, 03/27/2024 Findings: There are bilateral patchy opacities at both lower lobes which may represent atelectasis an d/or minimal pneumonia. No nodules, masses or effusions are seen. The heart is enlarged. The pulmonar y vascularity is not increased. No pneumonia or pneumothorax is seen. XR/XR chest 1V portable [id number] Impression: Negative chest.
--- NOTE | 2024-05-23 13:44 | ECG_ITS ---
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 Measurements Intervals [place] Rate: 76 P: 42 HI: 151 QRS: 8 QRSD: 116 T: 41 QT: 411 QTc: 463 Interpretive Statements SINUS RHYTHM INCOMPLETE RIGHT BUNDLE BRANCH BLOCK [90+ ms QRS DURATION, TERMINAL R IN V1/V2, 40+ ms S IN I/aVL/V4/V5/V6] No previous ECG available for comparison Electronically Signed On 05-24-2024 21:44:45 REALTIME CAPTIONER by Que Hawley M.D. [email or web address]
[2024-05-23 13:58] LABS: Glucose Point of Care 220 mg/dL (70-110)
--- NOTE | 2024-05-23 14:09 | PC.NURSE ---
pt does not wear oxygen at home
[2024-05-23 14:11] LABS: Basophils # 0.1 10^3/uL (0.0-0.1); Basophils % 0.4 %; Eosinophils % 0.1 %; Hematocrit 31.4 % (37-53); Lymphocytes % 5.8 %; Mean Corpuscular HGB Conc 26.8 g/dL (30-55); Mean Platelet Volume 8.2 fL (7.4-10.4); Monocytes # 1.3 10^3/uL (0.2-0.9); Monocytes % 7.8 %; Neutrophils # 13.94 10^3/uL (1.8-7.7); Neutrophils % 85.2 %; Nucleated Red Blood Cells % 0 %; Platelet Count 399 10^3/cmm (157-399); Red Blood Count 4.42 10^6/uL (3.85-5.65); Red Cell Distribution Width 21.2 % (12.1-15.1); White Blood Count 16.37 10^3/uL (3.29-11.43)
[2024-05-23 14:23] LABS: INR 1.06 (0.8-1.2)
[2024-05-23 14:24] LABS: Partial Thromboplastin Time 25.1 SECONDS (23.9-36.7)
[2024-05-23 14:27] LABS: Alanine Aminotransferase 8 U/L (0-41); Albumin Level 4.4 g/dL (3.5-5.2); Alkaline Phosphatase 66 U/L (40-130); Aspartate Amino Transferase 10 U/L (0-40); Blood Urea Nitrogen 14 mg/dL (8-23); Calcium 8.9 mg/dL (8.5-10.5); Carbon Dioxide 26 mmol/L (22-29); Chloride 101 mmol/L (98-107); Creatinine Clr Calc Pharmacy 73.2917; Globulin 2.9 g/dL (1.3-4.6); Glucose 214 mg/dL (65-115); Osmolality Calculated 295 mOsm/kg (285-295); Sodium 139 mmol/L (136-145); Total Bilirubin 0.2 mg/dL (0.15-1.2); Total Protein 7.3 g/dL (6.6-8.7)
--- NOTE | 2024-05-23 14:30 | CTR_ITS ---
PROCEDURE INFORMATION: Exam: CTA Chest With Contrast Exam date and time: 05/23/2024 4:47 PM Age: 78 years old Clinical indication: Dyspnea; Additional info: Dypnea, hypoxia TECHNIQUE: Imaging protocol: Computed tomographic angiography of the chest with contrast. Exam focused on the arteries. 3D rendering (Not supervised by radiologist): MIP and/or 3D reconstructed images were created by the technologist. Radiation optimization: All CT scans at this facility use at least one of these dose optimization techniques: automated exposure control; mA and/or kV adjustment per patient size (includes targeted exams where dose is matched to clinical indication); or iterative reconstruction. Contrast material: OMNIPAQUE 350; Contrast volume: 100 ml; Contrast route: INTRAVENOUS (IV); COMPARISON: CR XR chest 1V portable [id number] 05/23/2024 1:57 PM RADIATION DOSE METRICS: Total DLP (mGy-cm): 424.84 FINDINGS: Pulmonary arteries: The pulmonary arteries are well opacified with contrast. No evidence of a pulmonary embolism. Aorta: Scattered soft and calcific atherosclerosis in the thoracic aorta and upper abdominal aorta without evidence of aneurysm or dissection. Lungs: Minimal scattered mucous plugging in the lung bases. Nonspecific dependent consolidation in both lung bases and within the right middle lobe may represent infiltrate or atelectasis. There is a pulmonary nodule in the left lung base measuring 3 mm (image 345, series 7). Calcified granulomas in the left hilum and left lower lobe. Pleural spaces: No pneumothorax or pleural effusion. Heart: Mild cardiomegaly. No pericardial effusion.Coronary artery calcification is present. Lymph nodes: No mediastinal lymphadenopathy. Upper abdomen: There are a few scattered hepatic hypodensities likely representing small cysts largest in the right lobe inferiorly measuring approximately 0.2 cm. Indeterminate right renal hypodense lesion measuring approximately 1.3 cm without simple fluid internal density. Prominent hiatal hernia of the stomach. Visualized portions of the upper abdominal structures are otherwise unremarkable. Bones/joints: Dysmorphic appearance of the left clavicle suggesting sequelae of remote prior healed trauma.Mild scattered degenerative changes of the visualized spine. No aggressive osseous lesion or fracture is seen. Soft tissues: The visualized superficial soft tissues have a normal appearance. CT/CT angio chest PE protcl [id number] IMPRESSION: 1. No evidence of a pulmonary embolism. No pneumothorax or pleural effusion. 2. There is minimal dependent consolidation in the lung bases , right middle lobe and lingula concerning for possible developing infiltrate although this could represent atelectasis. 3. Indeterminate 1.3 cm right renal hypodense lesion.Recommend non-emergent MRI without and with contrast or non-emergent CT without and with contrast. MRI is preferred for masses under 1.5 cm. 4. 3 mm pulmonary nodule in the left lung base. Please see note below 5. Other incidental and/or chronic findings as detailed above. For patients at low risk (minimal or absent history of smoking and of other known risk factors), no routine follow-up is indicated. For patients at high risk (history of smoking or of other known risk factors), consider optional CT Chest at 12 months. (Reference: Ann) References: Ann H, et al. Guidelines for Management of Incidental Pulmonary Nodules Detected on CT Images: From the Fleischner Society 2017. Radiology. 2017;284(1):228-243.
[2024-05-23 16:39] LABS: Bilirubin Urine Negative (Negative); Blood Urine Negative (Negative); Glucose Urine UA 1+ (Normal); Ketones Urine 1+ (Negative); Leukocyte Esterase Urine Negative (Negative); Nitrate Urine Negative (Negative); Protein Urine 1+ (Negative); Specific Gravity, Urine 1.019 (1.005-1.030); Urine Appearance Clear (CLEAR); Urine Color Yellow (Yellow); pH Urine 5.5 (5-7)
[2024-05-23 16:42] LABS: Add Urine Microscopic? YES; Bacteria Urine None Seen /hpf; Hyaline Casts Urine 2.87 /lpf; RBC Urine 0-2 /hpf (0-2); Squamous Epithelial Cell Urine 0-5 /hpf (0-5); WBC Urine 0-5 /hpf (0-5)
[2024-05-23 16:46] LABS: Amphetamines Screen Urine Negative (Negative); Barbiturates Screen Urine Negative (Negative); Benzodiazepines Screen Urine Negative (Negative); Cocaine Screen Urine Negative (Negative); Opiate Screen Urine Negative (Negative); PCP Screen Urine Negative (Negative); THC Screen Urine Negative (Negative)
[2024-05-23] MEDS: iohexol 350 mg/mL 500 mL Btl (per mL) IV (16:51)
[2024-05-23 17:07] LABS: Troponin(5th) Baseline 9 ng/L (0-15)
[2024-05-23 17:50] LABS: Troponin 5 2HR 8.11 ng/L (0-15)
[2024-05-23 17:51] LABS: Troponin 5 2HR Delta -0.89 ABS# (0-10)
--- NOTE | 2024-05-23 18:25 | ECG_ITS ---
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 Measurements Intervals [place] Rate: 80 P: 54 TN: 157 QRS: 25 QRSD: 109 T: 56 QT: 383 QTc: 442 Interpretive Statements SINUS RHYTHM INCOMPLETE RIGHT BUNDLE BRANCH BLOCK [90+ ms QRS DURATION, TERMINAL R IN V1/V2, 40+ ms S IN I/aVL/V4/V5/V6] Compared to ECG 05/23/2024 14:06:38 No significant changes Electronically Signed On 05-28-2024 19:43:45 DENTURE MODEL MAKER by Que Hawley M.D. [email or web address]
[2024-05-23 18:45] LABS: Covid PCR NEGATIVE (Negative); Influenza A NEGATIVE (Negative); Influenza B NEGATIVE (Negative); Respiratory Syncytial Virus Ce NEGATIVE (Negative)
--- NOTE | 2024-05-23 19:02 | PC.NURSE ---
This nurse assumed care at shift change from Roxana RN at shift change.
[2024-05-23] MEDS: meclizine 25 mg tablet 50 MG PO (19:04)
--- NOTE | 2024-05-23 19:53 | P.HP_ITS ---
Providers/Chief Complaint 2 Admitting Physician: Micheal Hill MD Primary Care Provider: Gordon Holt MD Chief Complaint: Sudden onset vertigo, N/V History of Present Illness Sancho Renee is a 78 year old male chronic AAA 4.8 cm, was following up with Dr. Childs, chronic dizziness with tinnitus, has been referred to ENT head ear canal MRI did not show any acute changes, patient is also endorsing hearing deficit stating that today his nausea vomiting and dizziness got worse that prompted her visit to the ER. Patient has not noticed any fever runny nose or diarrhea but stating that he recently had cataract surgery done which exacerbated his symptoms. He still drives. Lives at home with his . Has not noticed any stroke related symptoms for focal weakness facial droop or slurred speech. Patient has not seen any neurologist yet. He has been taking meclizine. No significant improvement In the ER he was put on 3 L nasal cannula for hypoxia however when I evaluate the patient I turned off the oxygen and he was saturating 92 to 93% on room air he was hemodynamically stable complaining of tinnitus and dizziness even with still head position, patient is stating that mostly with change of weather he gets flare of pneumonia patient is stating that his prostate was evaluated by urologist and he was not diagnosed with any cancer I have discussed this case with Dr. Quezada, he recommended vascular workup because of his AAA, he has recommended echo and CTA head and neck for now Patient had received Zosyn in the ER, he patient is not sure if he will he was given steroids by the EMS but his white count is around 16,000, no fever CTA chest showed possible pneumonia Review of Systems 2 Const: Denies: fever(s) Eyes: Denies: change in vision ENMT: Denies: throat pain Card: Denies: chest pain Resp: Denies: dyspnea GI: Reports: nausea and vomiting : Denies: flank pain Neuro: Reports: dizziness and vertigo Medications/Allergies Home Medications Medication Instructions Recorded Confirmed Last Taken Type ondansetron 4 mg disintegrating 4 mg PO Q8H nausea and vomiting 12/29/23 05/23/24 Unknown Rx tablet #30 tabs sildenafil (pulm.hypertension) 20 20 mg PO .COMPLEX #30 tabs 12/29/23 05/23/24 Unknown Rx mg tablet tamsulosin 0.4 mg capsule 0.4 mg PO BID #180 caps 12/29/23 05/23/24 05/23/24 Rx fluticasone propionate 50 1 spray intranasal BID PRN nasal 03/13/24 05/23/24 Unknown Rx mcg/actuation nasal congestion #16 grams spray,suspension (Flonase Allergy Relief) acetaminophen 325 mg tablet 650 mg PO QID PRN Pain 05/23/24 05/23/24 05/23/24 History (Tylenol) amlodipine 5 mg tablet 5 mg PO DAILY 05/23/24 05/23/24 05/23/24 History meclizine 25 mg tablet 25 mg PO BID PRN Nausea And 05/23/24 05/23/24 05/23/24 History Vomiting Allergies Allergy/AdvReac Type Severity Reaction Status Date / Time No Known Allergies Allergy Verified 03/27/24 13:27 PFSH Acute 2 PFSH: Medical History BCC (basal cell carcinoma), face M?ni?re's syndrome or vertigo Renal calculi BPH loc w urin obs/LUTS AAA (abdominal aortic aneurysm) Surgical History History of excision of lesion skin cancer hand H/O inguinal hernia repair right H/O knee surgery S/P tonsillectomy S/P appendectomy History of lithotripsy Family History Mother , at age 88 Aortic aneurysm Father , in his 80's Arthritis Other AAA (abdominal aortic aneurysm) Cancer Hypertension Social History Smoking and tobacco/nicotine status: former use of tobacco/nicotine Quit status (tobacco/nicotine): has quit using Year quit tobacco: 1999 Alcohol intake: never Substance/Drug Use: never Marital status: / Current occupational status: retired Vitals/I&O/Wt Last Vital Signs Temp 98.7 F 05/23/24 14:10 Pulse 83 05/23/24 18:00 Resp 16 05/23/24 18:00 BP 131/81 05/23/24 18:00 Pulse Ox 94 05/23/24 18:00 O2 Del Method Nasal Cannula 05/23/24 13:29 O2 Flow Rate 3 05/23/24 13:29 Weight last 48 hrs Weight 88.904 kg Physical Exam 2 Narrative: No acute focal deficit Patient keeping his head still in 1 position I do not see any focal deficits at all On room air saturating 91 to 92% Abdomen soft Lower extremity no significant swelling Abdomen is nontender S1, S2 sinus rhythm Hemodynamically stable Pleasant and cooperative Appears stated age AOx3 GCS 15 Data 05/23/24 14:03 05/23/24 14:03 A&P Assessment and plan (1) AAA (abdominal aortic aneurysm): Qualifiers: Presence of rupture: without rupture Qualified Code(s): I71.4 - Abdominal aortic aneurysm, without rupture (2) Benign essential HTN: (3) 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 Quezada is going off service starting midnight, please call Dr. Jorge in the morning Acute hypoxia I have turned off his oxygen he is saturating 92% on room air However I am not able to explain his white count of 16,000 CTA chest shows signs possible for pneumonia Will put him on levofloxacin and ceftriaxone, he received 1 dose of Zosyn in the ER AAA 4.8 cm Follows up with Dr. Childs Patient will need AAA repair sooner than later Keep heart rate below 80 blood pressure systolic below 120 mmHg and diastolic below 80 mmHg Prostate indentation: As per patient he has seen urologist and no cancer was diagnosed Patient is still driving Full code Cardiac diet DVT prophylaxis Lovenox Attestations 2 Medical Necessity Statement*: Anticipating discharge within 48 hours Diagnoses Abdominal aortic aneurysm (AAA) without rupture I71.4 Presence of rupture: without rupture Benign essential HTN I10 Meniere's disease of both ears H81.03 Laterality: bilateral Nausea R11.0 BPH loc w urin obs/LUTS N40.1
--- NOTE | 2024-05-23 20:37 | USCV_ITS ---
Sancho Renee Age: 78 Gender: M : 1945 Exam Date: 05/23/2024 20:50 Ordering Phys: Byron Roberts MD Technologist: TANESHA Exam Location: [facility] [place] Indication: dizzy BP: 140 / 84 HR: 73 Rhythm: Sinus Technical Quality: Adequate MEASUREMENTS (Male / Female) Normal Values 2D ECHO LV Diastolic Diameter PLAX 4.5 cm 4.2 - 5.9 / 3.9 - 5.3 cm IVS Diastolic Thickness 1.4 cm 0.6 - 1.0 / 0.6 - 0.9 cm IVS Systolic Thickness 1.9 cm LVPW Diastolic Thickness 1.2 cm 0.6 - 1.0 / 0.6 - 0.9 cm LVPW Systolic Thickness 1.6 cm LVOT Diameter 1.9 cm LV Ejection Fraction 2D Teich 73.1 % LV Ejection Fraction MOD 4C 69.9 % LV Ejection Fraction MOD 2C 66.2 % LV Ejection Fraction 2C AL 66.9 % LA Diameter 3.0 cm Aorta at Sinotubular Diameter 3.1 cm IVC Diameter 1.9 cm M-MODE LA Ao Ratio MM 0.7 AV Cusp Separation MM 1.9 cm DOPPLER AV Peak Velocity 140.0 cm/s LVOT Peak Velocity 102.0 cm/s AV Area Cont Eq vti 2.7 cm squared AV Area Cont Eq pk 2.1 cm squared MV Peak Velocity 95.0 cm/s MV Area PHT 3.0 cm squared Mitral E to A Ratio 0.8 TV Peak E Velocity 36.0 cm/s PV Peak Velocity 101.0 cm/s FINDINGS Left Ventricle Normal left ventricular size and systolic function, EF 73% . Mild left ventricular hypertrophy. Grade I/IV diastolic dysfunction (abnormal relaxation filling pattern), normal to mildly elevated filling pressures. Right Ventricle The right ventricle is normal in size and function. Right Atrium The right atrium is normal in size. Left Atrium The left atrium is normal in size. Mitral Valve No gross abnormalities noted Aortic Valve Thickened aortic valve. Tricuspid Valve No gross abnormalities noted Pulmonic Valve Trace pulmonary valve regurgitation. Pericardium Normal pericardium without effusion. Aorta Normal ascending aorta dimension. IVC The inferior vena cava appears normal. CONCLUSIONS Normal left ventricular size and systolic function, EF 73% . Mild left ventricular hypertrophy. Grade I/IV diastolic dysfunction (abnormal relaxation filling pattern), normal to mildly elevated filling pressures. Thickened aortic valve. Trace pulmonary valve regurgitation. There is no pericardial effusion. There are no intracardiac masses. No similar previous studies are available for comparison Dr Que Hawley MD FAC (Electronically Signed) Final Date: 24 May 2024 13:29 S
[2024-05-23 20:43] LABS: Vitamin B12 267 pg/mL (232-1245)
[2024-05-23] MEDS: scopolamine 1.5 Patch 1 PATCH TRANSDERMA (21:16)
[2024-05-23] MEDS: cefTRIAXone 1,000 mg SDV 1000 MG IVP (21:16)
[2024-05-23] MEDS: enoxaparin 40 mg/0.4 mL Syringe SUBCUT (21:16)
[2024-05-23 21:35] LABS: Troponin 5 6HR 11.08 ng/L (0-15); Troponin 5 6HR Delta 2.08 ng/L (0-12)
--- NOTE | 2024-05-23 22:18 | P.CONIM_ITS ---
Providers/Reason For Consult 2 Consulting Physician/Specialty*: Nato Quezada MD neurology and epilepsy Reason for Consult*: Severe dizziness associated with profuse sweating nausea and vomiting for years but worse over the past 48 hours Attending Physician: Byron Roberts MD Primary Care Provider: Gordon Holt MD History of Present Illness History of Present Illness Sancho Renee is a 78 year old male with a history of abdominal aortic aneurysm, hypertension and chronic dizziness that occurs independent of activity. According to the patient, the dizzy episodes are followed by profuse sweating followed by severe nausea and vomiting. The patient reported that the dizziness is worse with movement of his eyes or movement of his head or body or changing positions. But the patient stated the episodes can occur even when he is lying down and not moving. The patient stated that he has experienced these episodes for years but the symptoms have become worse over the past few days. Noncontrast head CT scan was obtained on 05/23/2024 and revealed the following: IMPRESSION: 1. No acute intracranial hemorrhage or edema. 2. Mild atrophy with small vessel ischemic disease. 3. Prior lacunar infarcts LEFT external capsule and towards the RIGHT frontal vertex. Chest CT scan performed on 05/23/2024 revealed the following: IMPRESSION: 1. No evidence of a pulmonary embolism. No pneumothorax or pleural effusion. 2. There is minimal dependent consolidation in the lung bases , right middle lobe and lingula concerning for possible developing infiltrate although this could represent atelectasis. 3. Indeterminate 1.3 cm right renal hypodense lesion.Recommend non-emergent MRI without and with contrast or non-emergent CT without and with contrast. MRI is preferred for masses under 1.5 cm. 4. 3 mm pulmonary nodule in the left lung base. Please see note below 5. Other incidental and/or chronic findings as detailed above. The patient reports being evaluated by ENT in the past and was diagnosed with M?ni?re's disease and benign positional vertigo. In view of the patient's continued complaints of dizziness/lightheadedness followed by profuse sweating with nausea and vomiting a neurology consult was obtained. Past medical history: M?ni?re's disease Benign positional vertigo Essential hypertension Benign prostate hypertrophy Hypertriglyceridemia Abdominal aortic aneurysm Drug allergies: None Current medications: Norvasc 5 mg p.o. daily Antivert 25 mg p.o. twice daily as needed Zofran 4 mg p.o. every 8 hours Sildenafil 20 mg p.o. daily for pulmonary hypertension Flomax 0.4 mg p.o. daily Habits: None Family history: Negative for strokes Review of Systems 2 General: Reports: 10 or more systems reviewed and unremarkable except in HPI and below Medications/Allergies Home Medications Medication Instructions Recorded Confirmed Last Taken Type ondansetron 4 mg disintegrating 4 mg PO Q8H nausea and vomiting 12/29/23 05/23/24 Unknown Rx tablet #30 tabs sildenafil (pulm.hypertension) 20 20 mg PO .COMPLEX #30 tabs 12/29/23 05/23/24 Unknown Rx mg tablet tamsulosin 0.4 mg capsule 0.4 mg PO BID #180 caps 12/29/23 05/23/24 05/23/24 Rx fluticasone propionate 50 1 spray intranasal BID PRN nasal 03/13/24 05/23/24 Unknown Rx mcg/actuation nasal congestion #16 grams spray,suspension (Flonase Allergy Relief) acetaminophen 325 mg tablet 650 mg PO QID PRN Pain 05/23/24 05/23/24 05/23/24 History (Tylenol) amlodipine 5 mg tablet 5 mg PO DAILY 05/23/24 05/23/24 05/23/24 History meclizine 25 mg tablet 25 mg PO BID PRN Nausea And 05/23/24 05/23/24 05/23/24 History Vomiting Allergies Allergy/AdvReac Type Severity Reaction Status Date / Time No Known Allergies Allergy Verified 03/27/24 13:27 Current Medications Generic Name Dose Route Start Last Admin Trade Name Freq PRN Reason Stop Dose Admin Ceftriaxone Sodium 1,000 mg 05/23/24 21:00 05/23/24 21:16 Ceftriaxone 1,000 Mg Sdv IVP 1,000 mg Q24H DANNY Administration Protocol Enoxaparin Sodium 40 mg 05/23/24 21:00 05/23/24 21:16 Enoxaparin 40 Mg/0.4 Ml Syringe SUBCUT 40 mg Q24H DANNY Administration Scopolamine 1 patch 05/23/24 20:30 05/23/24 21:16 Scopolamine 1.5 Patch TRANSDERMA 1 patch Q3D DANNY Administration PFSH Acute 2 PFSH: Medical History BCC (basal cell carcinoma), face M?ni?re's syndrome or vertigo Renal calculi BPH loc w urin obs/LUTS AAA (abdominal aortic aneurysm) Surgical History History of excision of lesion skin cancer hand H/O inguinal hernia repair right H/O knee surgery S/P tonsillectomy S/P appendectomy History of lithotripsy Family History Mother , at age 88 Aortic aneurysm Father , in his 80's Arthritis Other AAA (abdominal aortic aneurysm) Cancer Hypertension Social History Smoking and tobacco/nicotine status: former use of tobacco/nicotine Quit status (tobacco/nicotine): has quit using Year quit tobacco: 1999 Alcohol intake: never Substance/Drug Use: never Marital status: / Current occupational status: retired Vitals/I&O/Wt Last Vital Signs Temp 98.7 F 05/23/24 14:10 Pulse 75 05/23/24 20:41 Resp 21 H 05/23/24 20:15 BP 140/84 05/23/24 20:41 Pulse Ox 94 05/23/24 20:41 O2 Del Method Nasal Cannula 05/23/24 20:15 O2 Flow Rate 2 05/23/24 20:15 Weight last 48 hrs Weight 202 lb Weight 196 lb Physical Exam 2 Narrative: The patient is currently alert and oriented x 3. Speech fluent. Patient reports severe dizziness while lying flat on the bed in a supine position. Head normocephalic. Neck supple. Cranial nerves II through XII grossly intact. Pupils 4 mm round reactive light accommodation. Extraocular movements intact but patient reported dizziness with movement of his eyes. I did not observe any obvious nystagmus. Motor testing 5/5 bilaterally. Throat clear. Lungs clear. Heart regular rhythm and rate. Extremities were negative for cyanosis. Data 05/23/24 14:03 05/23/24 14:03 A&P Assessment and plan (1) Vertigo: Impression: 1. Severe dizziness/vertigo followed by profuse sweating nausea and severe vomiting chronic 2. Abnormal head CT scan secondary to reports of remote strokes in the LEFT external capsule and towards the RIGHT frontal vertex. 3. History of diagnosis of M?ni?re's disease and benign positional vertigo Plan: 1. Recommend obtaining head MRI with and without contrast to assess for posterior fossa lesion and brainstem stroke 2. Recommend MRA of the [employer] of [place] and great vessels of the neck to assess for intracranial and extracranial stenosis and to evaluate for vertebral basilar artery stenosis 3. Recommend cardiac evaluation to assess for cardiac causes for dizziness 4. Recommend obtaining 2D echocardiogram to assess for cardiac dysfunction 5. Agree with cardiac telemetry monitoring 6. Recommend ENT evaluation for dizziness if above workup is unrevealing 7. Fall precautions 8. Recommend starting aspirin 325 mg p.o. every morning with food and Lipitor 40 mg p.o. nightly per [facility] stroke protocol once nausea and vomiting has stabilized 9. Stroke education and stroke pamphlet for patient (2) Dizziness: (3) Remote history of stroke: Consult Attestations 2 Medical Necessity Statement: The patient was evaluated by neurology for severe chronic dizziness followed by profuse sweating nausea and vomiting Coding Level of Care Code 51092 Diagnoses Vertigo R42 Dizziness R42 Remote history of stroke Z86.73
--- NOTE | 2024-05-23 22:25 | ECG_ITS ---
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 Measurements Intervals [place] Rate: 76 P: 53 WV: 159 QRS: 22 QRSD: 110 T: 49 QT: 384 QTc: 433 Interpretive Statements SINUS RHYTHM INCOMPLETE RIGHT BUNDLE BRANCH BLOCK [90+ ms QRS DURATION, TERMINAL R IN V1/V2, 40+ ms S IN I/aVL/V4/V5/V6] Compared to ECG 05/23/2024 18:14:45 No significant changes Electronically Signed On 05-28-2024 19:43:40 PREVOCATIONAL/REHABILITATION COUNSELOR by Que Hawley M.D. [email or web address]
[2024-05-24] VITALS (14 sets, daily range): BP systolic 113–148; BP diastolic 61–80; PULSE 70–85; RESP 15–18; TEMP 36.4–37.3; O2SAT 89–96
[2024-05-24 05:56] LABS: Basophils # 0.1 10^3/uL (0.0-0.1); Basophils % 0.4 %; Eosinophils % 0.2 %; Hematocrit 29.8 % (37-53); Lymphocytes # 1.3 10^3/uL (0.8-4.8); Lymphocytes % 9.7 %; Mean Corpuscular HGB Conc 26.5 g/dL (30-55); Mean Corpuscular Hemoglobin 19.2 pg (27-33); Mean Corpuscular Volume 72.3 fl (82-101); Mean Platelet Volume 8.9 fL (7.4-10.4); Monocytes # 1.1 10^3/uL (0.2-0.9); Monocytes % 8.4 %; Neutrophils # 10.94 10^3/uL (1.8-7.7); Neutrophils % 80.9 %; Nucleated Red Blood Cells % 0 %; Platelet Count 361 10^3/cmm (157-399); Red Blood Count 4.12 10^6/uL (3.85-5.65); Red Cell Distribution Width 21.2 % (12.1-15.1); White Blood Count 13.53 10^3/uL (3.29-11.43)
[2024-05-24 06:20] LABS: Anion Gap 14.4 (5-19); Blood Urea Nitrogen 13 mg/dL (8-23); Calcium 8.6 mg/dL (8.5-10.5); Carbon Dioxide 24 mmol/L (22-29); Chloride 106 mmol/L (98-107); Creatinine Clr Calc Pharmacy 72.8925; Glucose 92 mg/dL (65-115); Magnesium 2.1 mg/dL (1.7-2.3); Osmolality Calculated 290 mOsm/kg (285-295); Phosphorus 3.3 mg/dL (2.5-4.5); Potassium 4.4 mmol/L (3.5-5.1); Sodium 140 mmol/L (136-145)
--- NOTE | 2024-05-24 06:59 | PC.NURSE ---
This nurse was doing the patients admission assessment, when discussing the patients advanced directives the patient stated that they have a DNR . This nurse asked the patient to clarify given the patients current full code status. the patient stated he is fine with life saving interventions such as medications as well as compressions but dose not want that damn tube down my throat . I clarified with the patient on him being okay with compressions and medication and the patient agreed. this nurse updated the care team involved to have another discussion with patient regarding code status and getting it updated.
[2024-05-24] MEDS: tamsulosin 0.4 mg Capsule PO ×2 (08:02→17:34)
[2024-05-24] MEDS: lisinopril 10 mg Tablet PO (08:03)
[2024-05-24] MEDS: doxycycline 100 mg Tablet PO (08:06)
[2024-05-24] MEDS: sennosides-docusate Tablet 1 TAB PO (08:06)
[2024-05-24] MEDS: amlodipine 5 mg Tablet PO (08:07)
[2024-05-24] MEDS: ondansetron 2 mg/ML SDV 2 mL 4 MG IVP ×2 (08:07→15:56)
[2024-05-24 09:54] LABS: Estmated Average Glucose 117; Hemoglobin A1C 5.7 % (4.0-6.0)
[2024-05-24 10:18] LABS: Procalcitonin 0.14 ng/mL (0-0.5); Thyroid Stimulating Hormone 1.05 uIU/mL (0.27-4.20); Vitamin B12 237 pg/mL (232-1245)
[2024-05-24 10:29] LABS: Iron 14 ug/dL (59-158); Total Iron Binding Capacity 348 mcg/dl; Unsaturated Iron Binding 334 ug/dL (112-347)
[2024-05-24] MEDS: gadobenate dimeglumine 20 mL vial 19 ML IV (10:59)
[2024-05-24] MEDS: lanolin oint 7 gm 1 APPLIC TOPICAL (11:16)
[2024-05-24] MEDS: levoFLOXacin 750 mg Tablet PO (11:17)
[2024-05-24] MEDS: meclizine 25 mg tablet PO ×2 (11:47→21:01)
[2024-05-24 12:37] LABS: MRSA PCR OZH (swab) NOT DETECTED (Negative)
--- NOTE | 2024-05-24 14:49 | P.PN_ITS ---
Subjective 2 Subjective: Admitted overnight. Today morning seen laying in bed off oxygen. Saturating well. In distress because of persistent dizziness leading to nausea. States dizziness gets worse even on moving his eye from 1 to another and moving his head around. States she has been dealing with this for many years but gotten worse since he got his cataract operation few days ago. Vitals/I&O/Wt Last Vital Signs Temp 97.6 F 05/24/24 07:00 Pulse 81 05/24/24 11:00 Resp 18 05/24/24 11:00 BP 136/61 05/24/24 11:00 Pulse Ox 89 L 05/24/24 11:00 O2 Del Method Room Air 05/24/24 11:00 O2 Flow Rate 1 05/24/24 10:16 05/23/24 05/24/24 05/24/24 22:59 06:59 14:59 Intake Total 0 / 0 200 / 200 Output Total 500 / 500 325 / 325 Balance 0 / 0 -300 / -300 -325 / -325 Weight last 48 hrs Weight 87.861 kg Weight 91.626 kg Weight 88.904 kg Physical Exam 2 Narrative: General: In mild distress because of dizziness, AO x 3, HEENT: PERRLA, pupils bilaterally equal and reactive, no nystagmus Chest: Normal vesicular breath sounds, no added sounds, equal good air entry bilaterally CVS: S1-S2 regular, no murmurs, no tachycardia, no gallops, no rubs Abdomen: Soft, nontender, no organomegaly, bowel sounds present Neuro: No focal deficits, no facial deformity, AO x3, power 5/5 in all limbs Data 05/24/24 05:20 05/24/24 05:20 Micro: Microbiology 05/23/24 16:15 Bacterial Antigens - Final Urine Kidney A&P Assessment and plan (1) 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 Appreciate neurology recommendations. Appreciate MRI, MRA head and neck. Appreciate echocardiogram results showing EF of 70%, grade 1 diastolic dysfunction. Continue with aspirin 325 mg daily, atorvastatin 40 mg daily. Hold off on antihypertensive for permissible hypertension for next 24 hours. Dizziness/M?ni?re's syndrome: Chronic but worsening over last few days. Definitely worsening in setting of recent cataract surgery. Follows up with ENT as an outpatient. No improvement on meclizine. No improvement scopolamine patch Could be a combination of stroke, recent cataract surgery along with baseline chronic history of M?ni?re's syndrome. Will give a trial of high-dose steroids for next 1 week. Patient will need to follow-up as an outpatient with ENT. PT/OT. Patient will most likely to follow-up with outpatient vestibular therapy Hypoxia: Present on admission. Resolved right now. Patient did get outpatient treatment for pneumonia/upper respiratory tract infection last month with Augmentin and Levaquin. Does have mild leukocytosis. For hypoxia cannot rule out in setting of atelectasis. For now check sputum culture, MRSA swab. Continue with community-acquired pneumonia treatment with IV ceftriaxone. Patient requesting further Levaquin. Will start on Levaquin and discontinue doxycycline. AAA 4.8 cm Follows up with Dr. Childs Patient will need AAA repair sooner than later Keep heart rate below 80 blood pressure systolic below 120 mmHg and diastolic below 80 mmHg Prostate indentation: As per patient he has seen urologist and no cancer was diagnosed Protonix for PUD prophylaxis Full code Cardiac diet DVT prophylaxis Lovenox Attestations 2 Medical Necessity Statement*: Requires further hospitalization for management of persistent dizziness with nausea in setting of M?ni?re's syndrome, right posterior circulation stroke, hypoxia in setting of pneumonia. 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
[2024-05-24] MEDS: methylPREDNISolone sod succ 40 mg/mL INJ 30 MG IVP (15:56)
[2024-05-24] MEDS: cefTRIAXone 1,000 mg SDV 1000 MG IVP (21:00)
[2024-05-24] MEDS: enoxaparin 40 mg/0.4 mL Syringe SUBCUT (21:01)
--- NOTE | 2024-05-24 21:29 | MR_ITS ---
WS: [id number] MRA HEAD TECHNIQUE: Axial 3-D TOF images obtained with axial images and axial, sagittal, and coronal 2-D refor matted images. CLINICAL INFORMATION: vertigo COMPARISON: None. FINDINGS: Distal vertebral arteries are patent. Basilar artery is patent. Persistent LEFT PUBLICATION MANAGER. Normal vas cularity to the PUBLICATION MANAGER territory bilaterally. Both ICAs are patent at the skull base. Normal vascularity to the [place] and MCA territories bilaterally . No evidence of proximal flow-limiting stenosis or aneurysm. MR/MR angio head wo con [id number] IMPRESSION: Unremarkable intracranial MRA.
--- NOTE | 2024-05-24 21:29 | MR_ITS ---
WS: [id number] MRI HEAD WITH CONTRAST TECHNIQUE: Sagittal T1, T2 axial, T2 axial FLAIR, axial susceptibility weighted imaging, axial diffus ion weighted images, and coronal T2 images were obtained. Pre and post-T1 axial and post T1 coronal i mages. ADC and FSPGR images. CLINICAL INFORMATION: Vertigo COMPARISON: None. FINDINGS: Multiple patchy foci of restricted diffusion within the RIGHT cerebellum and cerebellar vermis new co mpared to previous. Mild associated edema. No significant mass effect. Fourth ventricle remains paten t. Largest area of ischemia in the RIGHT cerebellum measures 1.7 x 1.2 cm. Moderate small vessel foreman ges with moderate parenchymal volume loss. Small vessel changes in the rai. Normal vascular flow-voids at the skull base. No extra-axial fluid collections. No evidence of mass o r mass effect. Paranasal sinuses and mastoid air cells are well aerated. Mucosal thickening in the ma stoid air cells. Normal optic chiasm pituitary infundibulum. Mild symmetric atrophy of the temporal lobes and hippocam pal formations. No hemosiderin on susceptibly weighted images. MR/MR head wo/w con [id number] IMPRESSION: 1. Multiple patchy foci restricted diffusion within the RIGHT cerebellum and c erebellar vermis compatible with acute ischemia in the RIGHT PICA territory. 2. No significant mass effect or midline shift. 3. Moderate small vessel changes with moderate parenchymal volume loss. 4. No other acute findings. Message LEFT for Dr. Skinner at 05/24/2024 12:19 PM.
--- NOTE | 2024-05-24 21:29 | MR_ITS ---
WS: [id number] MRA CAROTID WITHOUT AND WITH GADOLINIUM ENHANCEMENT TECHNIQUE: Axial 2-D TOF and gadolinium bolus images obtained with axial images and axial, sagittal, and coronal 2-D reformatted images. CLINICAL INFORMATION: Vertigo COMPARISON: None. FINDINGS: RIGHT: RIGHT common carotid artery is patent. No significant RIGHT ICA stenosis. RIGHT ICA is patent to the skull base. Tortuous RIGHT cervical ICA. LEFT: LEFT common carotid artery is patent. No significant LEFT ICA stenosis. LEFT ICA is patent to the sku ll base. Codominant and patent vertebral arteries bilaterally. Vertebral arteries are patent to the skull base and basilar junction. MR/MR angio neck w con* [id number] IMPRESSION: 1. No significant cervical ICA stenosis. 2. Both vertebral arteries are patent.
[2024-05-25] VITALS (11 sets, daily range): BP systolic 119–160; BP diastolic 67–87; PULSE 80–87; RESP 15–18; TEMP 36.4–36.9; O2SAT 90–94
[2024-05-25] MEDS: methylPREDNISolone sod succ 40 mg/mL INJ 30 MG IVP ×3 (00:08→16:56)
[2024-05-25 05:07] LABS: Basophils % 0.2 %; Hematocrit 30.9 % (37-53); Lymphocytes # 0.7 10^3/uL (0.8-4.8); Lymphocytes % 6.6 %; Mean Corpuscular HGB Conc 26.9 g/dL (30-55); Mean Corpuscular Volume 70.7 fl (82-101); Mean Platelet Volume 8.4 fL (7.4-10.4); Monocytes # 0.2 10^3/uL (0.2-0.9); Monocytes % 1.5 %; Neutrophils # 9.88 10^3/uL (1.8-7.7); Neutrophils % 91.1 %; Nucleated Red Blood Cells % 0 %; Platelet Count 350 10^3/cmm (157-399); Red Blood Count 4.37 10^6/uL (3.85-5.65); Red Cell Distribution Width 21.2 % (12.1-15.1); White Blood Count 10.83 10^3/uL (3.29-11.43)
[2024-05-25 05:29] LABS: Alanine Aminotransferase 7 U/L (0-41); Albumin Level 3.9 g/dL (3.5-5.2); Alkaline Phosphatase 60 U/L (40-130); Anion Gap 14.6 (5-19); Aspartate Amino Transferase 10 U/L (0-40); Blood Urea Nitrogen 19 mg/dL (8-23); Calcium 8.4 mg/dL (8.5-10.5); Carbon Dioxide 25 mmol/L (22-29); Chloride 104 mmol/L (98-107); Creatinine Clr Calc Pharmacy 64.9312; Globulin 3.1 g/dL (1.3-4.6); Glucose 142 mg/dL (65-115); Osmolality Calculated 293 mOsm/kg (285-295); Potassium 4.6 mmol/L (3.5-5.1); Sodium 139 mmol/L (136-145); Total Bilirubin 0.2 mg/dL (0.15-1.2)
[2024-05-25 05:30] LABS: Chol HDL Ratio 4.28 mg/dL (1.0-5.00); Cholesterol 167 mg/dL (0-200); HDL Cholesterol 39 mg/dL (60-100); LDL Cholesterol Calculated 109 mg/dL (50-129); Magnesium 1.9 mg/dL (1.7-2.3); Triglycerides 96 mg/dL (0-150); VLDL Cholestrol Calculation 19 mg/dL (0-30)
[2024-05-25 05:43] LABS: Folate Level 16.6 ng/mL (4.5-32.2)
[2024-05-25] MEDS: levoFLOXacin 750 mg Tablet PO (05:55)
[2024-05-25] MEDS: sennosides-docusate Tablet 1 TAB PO (08:17)
[2024-05-25] MEDS: tamsulosin 0.4 mg Capsule PO ×2 (08:18→17:01)
--- NOTE | 2024-05-25 09:22 | PC.CHAP ---
Pastoral Care Encounter/Spiritual Assessment Type of Contact [X] Declined adobe flex developer visit [] Patient/Family/Request visit [] Outpatient visit [] Follow-up visit [] Physician referral [] Code/Alert [] Routine visit [] Staff referral [] Actively dying [] Patient sleeping [] Family support [] [] Out of room [] Palliative care [] [] Receiving care in room [] Pre-surgical visit [] Trauma [] Long length of stay [] ICU visit [] Other: Relational/Emotional Strength [X] Patient feels connected with others/family/visitors/staff [] Distress [] Loneliness/isolation [] Abandonment Spirituality of Patient [X] Person of Janeth [X] Attends Anabaptist of their Jan[place] [X] Believes in Prayer [X] Reads Bible or Jehovah'S Witness materials [X] There are Spiritual issues to be addressed Pig Machine Supervisor Interventions [] Prayer [X] Active listening [X] Non-anxious presence [] Spiritual/emotional support [] Crisis/trauma care [] Spiritual counseling [] Bereavement support [] Provided bereavement packet [] Provided Bible/devotional materials [] Provided toy/stuffed animal, coloring book to patient or family member [] Provided Communion [] Anointing/[place] [] Salvation [] Completed spiritual assessment [] Other: Impact on Illness or Injury [] Angry [] Fearful [] Anxious [] Often cries [] Exhaustion [] Unable to work [] Unable to attend restorationism [] Unable to walk/stand [] Unable to read [] Unable to drive [] Unable to eat/drink [] Unable to sleep [] Unable to be with family [] Patient intubated [] Other: Summary BACKUP SAWYER JUST CALLED AND PRAYED WITH HIM Time spent with patient 10 MIN
--- NOTE | 2024-05-25 11:51 | P.PN_ITS ---
Subjective 2 Subjective: No acute vents overnight. Patient has remained hemodynamically stable and afebrile. Blood pressure is well-controlled. Patient states he was able to slowly walk from his bed to the bathroom last night and dizziness is slightly better. Wants to stay at the hospital for 1 more day as he thinks he is still not safe to live by himself because of dizziness. Denies any nausea, vomiting, headache. Tolerating diet. Vitals/I&O/Wt Last Vital Signs Temp 97.9 F 05/25/24 11:18 Pulse 81 05/25/24 11:18 Resp 18 05/25/24 11:18 BP 132/79 05/25/24 11:18 Pulse Ox 91 05/25/24 11:18 O2 Del Method Room Air 05/25/24 11:18 O2 Flow Rate 1 05/24/24 10:16 05/24/24 05/25/24 05/25/24 22:59 06:59 14:59 Intake Total 320 / 320 240 / 240 Output Total 475 / 800 150 / 950 200 / 200 Balance -155 / -480 -150 / -630 40 / 40 Weight last 48 hrs Weight 85.91 kg Weight 87.861 kg Weight 91.626 kg Weight 88.904 kg Physical Exam 2 Narrative: General: In mild distress because of dizziness, AO x 3, HEENT: PERRLA, pupils bilaterally equal and reactive, no nystagmus Chest: Normal vesicular breath sounds, no added sounds, equal good air entry bilaterally CVS: S1-S2 regular, no murmurs, no tachycardia, no gallops, no rubs Abdomen: Soft, nontender, no organomegaly, bowel sounds present Neuro: No focal deficits, no facial deformity, AO x3, power 5/5 in all limbs Data 05/25/24 04:46 05/25/24 04:46 Micro: Microbiology 05/23/24 16:15 Bacterial Antigens - Final Urine Kidney A&P Assessment and plan (1) 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 Appreciate neurology recommendations. Appreciate MRI, MRA head and neck. Appreciate echocardiogram results showing EF of 70%, grade 1 diastolic dysfunction. Continue with aspirin 325 mg daily, atorvastatin 40 mg daily. No more permissible hypertension now. Goal blood pressure less than 140/90 mmHg. Continue with Flomax for now. Patient also takes sildenafil at home. Hold off on amlodipine for now. Will restart as per goal blood pressures. Dizziness/M?ni?re's syndrome: Chronic but worsening over last few days. Definitely worsening in setting of recent cataract surgery. Follows up with ENT as an outpatient. No improvement on meclizine. No improvement scopolamine patch Could be a combination of stroke, recent cataract surgery along with baseline chronic history of M?ni?re's syndrome. States slight improvement after exercise with PT and high-dose steroids. For now we will continue with steroids. Will give a trial of high-dose steroids for next 1 week. Patient will need to follow-up as an outpatient with ENT. PT/OT. Patient will most likely to follow-up with outpatient vestibular therapy Hypoxia: Present on admission. Resolved right now. Patient did get outpatient treatment for pneumonia/upper respiratory tract infection last month with Augmentin and Levaquin. Leukocytosis have resolved. Sputum culture not collected. MRSA swab negative. For hypoxia cannot rule out in setting of atelectasis. Continue with community-acquired pneumonia treatment with IV ceftriaxone. Patient requesting further Levaquin. Will start on Levaquin and discontinue doxycycline. AAA 4.8 cm Follows up with Dr. Childs Patient will need AAA repair sooner than later Keep heart rate below 80 blood pressure systolic below 120 mmHg and diastolic below 80 mmHg Prostate indentation: As per patient he has seen urologist and no cancer was diagnosed Protonix for PUD prophylaxis Full code Cardiac diet DVT prophylaxis Lovenox Attestations 2 Medical Necessity Statement*: Requires further hospitalization for management of acute posterior circulation stroke, severe dizziness being complicated by past history of M?ni?re's disease, hypoxia in setting of pneumonia while safe discharge planning is sought as patient is at high risk of falls because of severe dizziness as he lives by himself Diagnoses 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
[2024-05-25] MEDS: aspirin 325 mg Tablet PO (12:12)
[2024-05-25] MEDS: meclizine 25 mg tablet PO ×2 (12:16→20:30)
[2024-05-25] MEDS: atorvastatin 40 mg Tablet PO (20:30)
[2024-05-25] MEDS: enoxaparin 40 mg/0.4 mL Syringe SUBCUT (20:31)
[2024-05-25] MEDS: cefTRIAXone 1,000 mg SDV 1000 MG IVP (20:31)
[2024-05-26] VITALS (7 sets, daily range): BP systolic 124–152; BP diastolic 75–81; PULSE 68–77; RESP 16–18; TEMP 36.4–36.9; O2SAT 91–96
[2024-05-26] MEDS: methylPREDNISolone sod succ 40 mg/mL INJ 30 MG IVP ×2 (00:17→08:51)
--- NOTE | 2024-05-26 05:02 | PC.NURSE ---
Patient refused morning lab draw. Patient stated I am going home today, there is no need to give more blood. Physician notified.
[2024-05-26] MEDS: levoFLOXacin 750 mg Tablet PO (06:16)
[2024-05-26] MEDS: fluticasone nasal spray 16gm Btl 1 SPRAY INTRANASAL (08:50)
[2024-05-26] MEDS: aspirin 325 mg Tablet PO (08:51)
[2024-05-26] MEDS: benzonatate 100 mg Capsule 200 MG PO (08:51)
[2024-05-26] MEDS: tamsulosin 0.4 mg Capsule PO (08:51)
[2024-05-26] MEDS: sennosides-docusate Tablet 1 TAB PO (08:52)
--- NOTE | 2024-05-26 12:33 | P.DS_ITS ---
Discharge Providers Date of Admission: 05/24/24 15:05 Date of Discharge: May 26, 2024 Attending Provider at Admission: Micheal Hill MD Attending Provider at Discharge: Micheal Hill MD Consults: Neurology: Dr. 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 Qualifiers: Laterality: bilateral Qualified Code(s): H81.03 - Meniere's disease, bilateral (3) Nausea: Status: Acute (4) Hypoxia: Status: Acute (5) Pneumonia: Status: Acute (6) AAA (abdominal aortic aneurysm): Status: Chronic Qualifiers: Presence of rupture: without rupture Qualified Code(s): I71.4 - Abdominal aortic aneurysm, without rupture (7) Benign essential HTN: Status: Acute (8) BPH loc w urin obs/LUTS: Status: Acute Reason for Visit Reason for Visit: Sudden onset vertigo, N/V Brief History: History as per HPI: Sancho Renee is a 78 year old male chronic AAA 4.8 cm, was following up with Dr. Childs, chronic dizziness with tinnitus, has been referred to ENT head ear canal MRI did not show any acute changes, patient is also endorsing hearing deficit stating that today his nausea vomiting and dizziness got worse that prompted her visit to the ER. Patient has not noticed any fever runny nose or diarrhea but stating that he recently had cataract surgery done which exacerbated his symptoms. He still drives. Lives at home with his . Has not noticed any stroke related symptoms for focal weakness facial droop or slurred speech. Patient has not seen any neurologist yet. He has been taking meclizine. No significant improvement In the ER he was put on 3 L nasal cannula for hypoxia however when I evaluate the patient I turned off the oxygen and he was saturating 92 to 93% on room air he was hemodynamically stable complaining of tinnitus and dizziness even with still head position, patient is stating that mostly with change of weather he gets flare of pneumonia patient is stating that his prostate was evaluated by urologist and he was not diagnosed with any cancer I have discussed this case with Dr. Quezada, he recommended vascular workup because of his AAA, he has recommended echo and CTA head and neck for now Patient had received Zosyn in the ER, he patient is not sure if he will he was given steroids by the EMS but his white count is around 16,000, no fever CTA chest showed possible pneumonia Hospital Course Hospital Course Patient was admitted to the hospital for further evaluation and management of new hypoxia, persistent worsening of dizziness. In the ER he was thought to be dizzy in setting of possible hypoxia. CT head on admission was negative. Due to persistent dizziness neurology was consulted. He underwent MRI of brain which was consistent with stroke of right posterior ICA. He was treated as per stroke protocols. He worked with PT and OT. It is believed his dizziness is most likely in setting of chronic M?ni?re's disease, new posterior circulation stroke along with recent cataract surgery. Patient dizziness gradually improved with meclizine, scopolamine patch and high-dose steroids along with persistent working with physical therapy. Safe discharge plan were discussed in detail with the patient and he denied placement to SNF for further rehabitation. He has been discharged in hemodynamically stable condition with home health with advised to follow-up with ENT within next 1 week, high-dose steroids for next 6 days. Hydrochlorothiazide has been added to his medication list which will help with his blood pressures and possibly with M?ni?re disease resolved. Safe discharge planning and safety precaution were discussed in detail with the patient and he verbalized understanding. Physical Exam Narrative: General: In mild distress because of dizziness, AO x 3, HEENT: PERRLA, pupils bilaterally equal and reactive, no nystagmus Chest: Normal vesicular breath sounds, no added sounds, equal good air entry bilaterally CVS: S1-S2 regular, no murmurs, no tachycardia, no gallops, no rubs Abdomen: Soft, nontender, no organomegaly, bowel sounds present Neuro: No focal deficits, no facial deformity, AO x3, power 5/5 in all limbs Discharge Data Studies Completed and Pending Completed Studies During Hospitalization Category Date Time Status CT angio chest PE protcl 76200 Stat Cat Scan 05/23/24 14:[address] head thrombolytic 93240 Stat Cat Scan 05/23/24 13:44 Completed XR chest 1V portable 22008 Stat Exams 05/23/24 13:44 Completed MR angio head wo con [id number] Routine MRI 05/24/24 21:29 Completed MR angio neck w con* [id number] Routine MRI 05/24/24 21:29 Completed MR head wo/w con [id number] Routine MRI 05/24/24 21:29 Completed CV. echo complete* [id number] Routine Ultrasound 05/23/24 20:37 Completed Pending at discharge Category Date Time Status MAG [Magnesium] AM LABS Lab 05/26/24 04:00 Ordered MAG [Magnesium] AM LABS Lab 05/27/24 04:00 Ordered Occult Blood Stool [Immunochemical Fecal OCB] Routine Lab 05/24/24 09:05 Uncollected Sputum Culture and Gram Stain Routine Lab 05/24/24 15:05 Ordered Radiology Impressions Chest X-Ray 05/23/24 13:44 Impression: Negative chest. Head CT 05/23/24 13:44 IMPRESSION: 1. No acute intracranial hemorrhage or edema. 2. Mild atrophy with small vessel ischemic disease. 3. Prior lacunar infarcts LEFT external capsule and towards the RIGHT frontal vertex. Notified Selvin Coleman DO at 05/23/2024 1:57 PM. Chest CTA 05/23/24 14:30 IMPRESSION: 1. No evidence of a pulmonary embolism. No pneumothorax or pleural effusion. 2. There is minimal dependent consolidation in the lung bases , right middle lobe and lingula concerning for possible developing infiltrate although this could represent atelectasis. 3. Indeterminate 1.3 cm right renal hypodense lesion.Recommend non-emergent MRI without and with contrast or non-emergent CT without and with contrast. MRI is preferred for masses under 1.5 cm. 4. 3 mm pulmonary nodule in the left lung base. Please see note below 5. Other incidental and/or chronic findings as detailed above. For patients at low risk (minimal or absent history of smoking and of other known risk factors), no routine follow-up is indicated. For patients at high risk (history of smoking or of other known risk factors), consider optional CT Chest at 12 months. (Reference: Ann) References: Ann Zhu, et al. Guidelines for Management of Incidental Pulmonary Nodules Detected on CT Images: From the Fleischner Society 2017. Radiology. 2017;284(1):228-243. Head MRI 05/24/24 21:29 IMPRESSION: 1. Multiple patchy foci restricted diffusion within the RIGHT cerebellum and cerebellar vermis compatible with acute ischemia in the RIGHT PICA territory. 2. No significant mass effect or midline shift. 3. Moderate small vessel changes with moderate parenchymal volume loss. 4. No other acute findings. Message LEFT for Dr. Skinner at 05/24/2024 12:19 PM. Head MRA 05/24/24 21:29 IMPRESSION: Unremarkable intracranial MRA. Neck MRA 05/24/24 21:29 IMPRESSION: 1. No significant cervical ICA stenosis. 2. Both vertebral arteries are patent. Laboratory Results WBC 10.83 10^3/uL (3.29-11.43) 05/25/24 04:46 RBC 4.37 10^6/uL (3.85-5.65) 05/25/24 04:46 Hgb 8.30 g/dL (11.27-16.99) L 05/25/24 04:46 Hct 30.9 % (37-53) L 05/25/24 04:46 MCV 70.7 fl (82-101) L 05/25/24 04:46 MCH 19.0 pg (27-33) L 05/25/24 04:46 MCHC 26.9 g/dL (30-55) L 05/25/24 04:46 RDW 21.2 % (12.1-15.1) H 05/25/24 04:46 Plt Count 350 10^3/cmm (157-399) 05/25/24 04:46 MPV 8.4 fL (7.4-10.4) 05/25/24 04:46 Neut % (Auto) 91.1 % 05/25/24 04:46 Lymph % (Auto) 6.6 % 05/25/24 04:46 [place] % (Auto) 1.5 % 05/25/24 04:46 Eos % (Auto) 0.0 % 05/25/24 04:46 Baso % (Auto) 0.2 % 05/25/24 04:46 Neut # (Auto) 9.88 10^3/uL (1.8-7.7) H 05/25/24 04:46 Lymph # (Auto) 0.7 10^3/uL (0.8-4.8) L 05/25/24 04:46 [place] # (Auto) 0.2 10^3/uL (0.2-0.9) 05/25/24 04:46 Eos # (Auto) 0.0 10^3/uL (0.0-0.8) 05/25/24 04:46 Baso # (Auto) 0.0 10^3/uL (0.0-0.1) 05/25/24 04:46 Nucleated RBC % (auto) 0 % 05/25/24 04:46 Nucleated RBCs # 0.0 /100WBC 05/25/24 04:46 PT 14.10 SECONDS (12.1-14.9) 05/23/24 14:03 INR 1.06 (0.8-1.2) 05/23/24 14:03 APTT 25.1 SECONDS (23.9-36.7) 05/23/24 14:03 Sodium 139 mmol/L (136-145) 05/25/24 04:46 Potassium 4.6 mmol/L (3.5-5.1) 05/25/24 04:46 Chloride 104 mmol/L (98-107) 05/25/24 04:46 Carbon Dioxide 25 mmol/L (22-29) 05/25/24 04:46 Anion Gap 14.6 (5-19) 05/25/24 04:46 BUN 19 mg/dL (8-23) 05/25/24 04:46 Creatinine 1.0 mg/dL (0.7-1.2) 05/25/24 04:46 GFR Calculation Not Reportable 05/25/24 04:46 Glucose 142 mg/dL (65-115) H 05/25/24 04:46 POC Glucose 220 mg/dL (70-110) H 05/23/24 13:48 Estimat Average Glucose 117 05/24/24 05:20 Hemoglobin A1c 5.7 % (4.0-6.0) 05/24/24 05:20 Calculated Osmolality 293 mOsm/kg (285-295) 05/25/24 04:46 Calcium 8.4 mg/dL (8.5-10.5) L 05/25/24 04:46 Phosphorus 3.3 mg/dL (2.5-4.5) 05/24/24 05:20 Magnesium 1.9 mg/dL (1.7-2.3) 05/25/24 04:46 Iron 14 ug/dL (59-158) L 05/24/24 05:20 TIBC 348 mcg/dl 05/24/24 05:20 % Saturation 4.0 % (20-50) L 05/24/24 05:20 Unsat Iron Binding 334 ug/dL (112-347) 05/24/24 05:20 Total Bilirubin 0.2 mg/dL (0.15-1.2) 05/25/24 04:46 AST 10 U/L (0-40) 05/25/24 04:46 ALT 7 U/L (0-41) 05/25/24 04:46 Alkaline Phosphatase 60 U/L (40-130) 05/25/24 04:46 Troponin T Baseline 9 ng/L (0-15) 05/23/24 14:03 Troponin T 120 Minute 8.11 ng/L (0-15) 05/23/24 16:03 Delta Troponin T -0.89 ABS# (0-10) L 05/23/24 16:03 Troponin T Hi Sens 6Hr 11.08 ng/L (0-15) 05/23/24 20:57 Troponin T Hi Sens 6Hr Delta 2.08 ng/L (0-12) 05/23/24 20:57 Total Protein 7.0 g/dL (6.6-8.7) 05/25/24 04:46 Albumin 3.9 g/dL (3.5-5.2) 05/25/24 04:46 Globulin 3.1 g/dL (1.3-4.6) 05/25/24 04:46 Triglycerides 96 mg/dL (0-150) 05/25/24 04:46 Cholesterol 167 mg/dL (0-200) 05/25/24 04:46 LDL Cholesterol, Calc 109 mg/dL (50-129) 05/25/24 04:46 Total VLDL Cholesterol 19 mg/dL (0-30) 05/25/24 04:46 HDL Cholesterol 39 mg/dL (60-100) L 05/25/24 04:46 Cholesterol/HDL Ratio 4.28 mg/dL (1.0-5.00) 05/25/24 04:46 Vitamin B12 237 pg/mL (232-1245) 05/24/24 05:20 Folate 16.6 ng/mL (4.5-32.2) 05/25/24 04:46 Procalcitonin 0.14 ng/mL (0-0.5) 05/24/24 05:20 TSH 1.05 uIU/mL (0.27-4.20) 05/24/24 05:20 Urine Color Yellow (Yellow) 05/23/24 16:15 Urine Appearance Clear (CLEAR) 05/23/24 16:15 Urine pH 5.5 (5-7) 05/23/24 16:15 Ur Specific [place] 1.019 (1.005-1.030) 05/23/24 16:15 Urine Protein 1+ (Negative) A 05/23/24 16:15 Urine Glucose (UA) 1+ (Normal) H 05/23/24 16:15 Urine Ketones 1+ (Negative) H 05/23/24 16:15 Urine Blood Negative (Negative) 05/23/24 16:15 Urine Nitrate Negative (Negative) 05/23/24 16:15 Urine Bilirubin Negative (Negative) 05/23/24 16:15 Urine Urobilinogen 1.0 mg/dL (Negative) 05/23/24 16:15 Ur Leukocyte Esterase Negative (Negative) 05/23/24 16:15 Urine RBC 0-2 /hpf (0-2) 05/23/24 16:15 Urine WBC 0-5 /hpf (0-5) 05/23/24 16:15 Ur Squamous Epith Cells 0-5 /hpf (0-5) 05/23/24 16:15 Amorphous Sediment Not Reportable 05/23/24 16:15 Urine Bacteria None seen /hpf (NONE) 05/23/24 16:15 Hyaline Casts 2.87 /lpf 05/23/24 16:15 Nasal MRSA (PCR) Not detected (Negative) 05/24/24 11:20 Urine Opiates Screen Negative ng/mL (Negative) 05/23/24 16:15 Ur Barbiturates Screen Negative ng/mL (Negative) 05/23/24 16:15 Ur Phencyclidine Scrn Negative ng/mL (Negative) 05/23/24 16:15 Ur Amphetamines Screen Negative ng/mL (Negative) 05/23/24 16:15 U Benzodiazepines Scrn Negative ng/mL (Negative) 05/23/24 16:15 Urine Cocaine Screen Negative ng/mL (Negative) 05/23/24 16:15 U Marijuana (THC) Screen Negative ng/mL (Negative) 05/23/24 16:15 Coronavirus (PCR) Negative (Negative) 05/23/24 17:57 Influenza A (PCR) Negative (Negative) 05/23/24 17:57 Influenza Type B (PCR) Negative (Negative) 05/23/24 17:57 RSV (PCR) Negative (Negative) 05/23/24 17:57 Vitals Last Vital Signs Temp 98.0 F 05/26/24 11:09 Pulse 74 05/26/24 11:09 Resp 17 05/26/24 11:09 BP 152/81 05/26/24 11:09 Pulse Ox 94 05/26/24 11:09 O2 Del Method Room Air 05/26/24 11:09 O2 Flow Rate 1 05/24/24 10:16 Discharge Plan Discharge Patient Disposition: Home Health Service Condition: Stable Prescriptions: New atorvastatin 40 mg Tablet 40 mg PO BEDTIME Qty: 30 0RF aspirin 325 mg Tablet 325 mg PO DAILY Qty: 30 0RF levofloxacin 750 mg Tablet 750 mg PO DAILY@0600 Qty: 2 0RF hydrochlorothiazide 25 mg Tablet 25 mg PO DAILY Qty: 30 0RF prednisone 10 mg tablet 60 mg PO DAILY 5 Days Qty: 30 0RF Continued ondansetron 4 mg tablet,disintegrating 4 mg PO Q8H Qty: 30 1RF sildenafil (pulm.hypertension) 20 mg tablet 20 mg PO .COMPLEX Qty: 30 0RF Rx Instructions: 1-5 pills taken 1 hour before sexual activity. Take on empty stomach tamsulosin 0.4 mg capsule 0.4 mg PO BID Qty: 180 3RF fluticasone propionate [Flonase Allergy Relief] 50 mcg/actuation spray,suspension 1 spray intranasal BID PRN (Reason: nasal congestion) Qty: 16 0RF Rx Instructions: administer into each nostril acetaminophen [Tylenol] 325 mg Tablet 650 mg PO QID PRN (Reason: Pain) amlodipine 5 mg tablet 5 mg PO DAILY meclizine 25 mg Tablet 25 mg PO BID PRN (Reason: Nausea And Vomiting) Discharge Orders: Discharge Order (Routine); Ordered 05/26/24 Ordered By: Micheal Hill Referrals: Nato Quezada MD [Physician] - 2 weeks (We have notified your physician's clinic of the need for a follow-up appointment to be scheduled. If you have not heard from them within the next 2 business days, please call them directly. ) Gordon Holt MD [Primary Care Provider] - 4-7 days (We have notified your physician's clinic of the need for a follow-up appointment to be scheduled. If you have not heard from them within the next 2 business days, please call them directly. ) Don Dailey MD [Physician] - 4-7 days (We have notified your physician's clinic of the need for a follow-up appointment to be scheduled. If you have not heard from them within the next 2 business days, please call them directly. ) Discharge Diet: Cardiac Discharge Activity: Resume usual activity and Increase activity as tolerated Patient Instructions: Hydrochlorothiazide (By mouth), Prednisone (By mouth), Aspirin (By mouth), Atorvastatin (By mouth), Levofloxacin (By mouth), Ischemic Stroke (DC), Community Acquired Pneumonia (DC), Opioid Safety, Stroke Stoplight Activity Restrictions/Additional Instructions: Please make sure you change her position from sitting to standing, laying to sitting gradually. Please follow-up with the ENT within next 1 week, neurology within next 2 weeks. Hydrochlorothiazide has been added to your medication list. Check your blood pressure daily at home and maintain a blood pressure diary. Also atorvastatin and aspirin has been added to your medication list. Discharge Attestations Time Spent in Discharge Care*: greater than 30 min Specific Discharge Activities: educating patient, discussing with pcp/other providers, discussing with rn case management/social workers/dc planners, documenting/other paperwork and evaluating patient/reviewing data Status at Discharge: Cognitive status at discharge: cognitively intact , Behavioral status at discharge: cooperative , Functional status at discharge: uses cane/walker , Overall status at discharge: patient is progressing back to baseline Quality Metrics Clinical Quality Measures [ No reported AMI, CVA or VTE this stay] Coding Level of Care Code 32229 Total time (in minutes) for Discharge: 60 Diagnoses 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
[2024-05-26] MEDS: hydroCHLOROthiazide 25 mg Tablet PO (13:24)
== END 2024-05-26 15:07 | disposition home health service (06) | DRG 64 ==
LOC: ER 16:27 → MEDSURG 20:54
PROVIDERS: Internal Medicine; Admitting Provider Student in an Organized Health Care Education/Training Program; Emergency Provider Family Medicine; PCP Family Medicine Adult Medicine; Visit Provider Student in an Organized Health Care Education/Training Program
DX: I63.531 Cerebral infarction due to unspecified occlusion or stenosis of right posterior cerebral artery (principal); J18.9 Pneumonia, unspecified organism; I71.40 Abdominal aortic aneurysm, without rupture, unspecified; H93.13 Tinnitus, bilateral; R09.02 Hypoxemia; H81.03 Meniere's disease, bilateral; N40.1 Benign prostatic hyperplasia with lower urinary tract symptoms; I10 Essential (primary) hypertension; E78.1 Pure hyperglyceridemia; Z85.828 Personal history of other malignant neoplasm of skin; Z87.442 Personal history of urinary calculi; Z87.891 Personal history of nicotine dependence
CPT/HCPCS: 0241U; 36415; 36416; 70450; 70544; 70548; 70553; 71045; 71275; 80048; 80053; 80061; 80306; 81001; 82607; 82746; 82962; 83036; 83540; 83550; 83735; 84100; 84145; 84443; 84484; 85025; 85610; 85730; 86403; 93005; 93306; 96372; 97110; 97161; 99285; G0378; J0696; J1650; J2405; J2919; J8597

== ENCOUNTER → 2024-06-11 16:08 | Outpatient (BNVA) | payer MEDICARE, SELFPAY | PROVIDERS: PCP Family Medicine; Visit Provider Family Medicine | DX: N28.89 Other specified disorders of kidney and ureter (principal); D50.8 Other iron deficiency anemias; D51.9 Vitamin B12 deficiency anemia, unspecified; N40.1 Benign prostatic hyperplasia with lower urinary tract symptoms; I63.9 Cerebral infarction, unspecified; I63.81 Other cerebral infarction due to occlusion or stenosis of small artery | CPT/HCPCS: 82607; 83540; 85025 ==

== ENCOUNTER 2024-06-12 07:48 | Emergency (ER) | payer MEDICARE, SELFPAY ==
[2024-06-12 07:53] VITALS: BP 133/75; PULSE 94; RESP 16; TEMP 36.9; O2SAT 96; BMI 28.1
--- NOTE | 2024-06-12 07:56 | ECG_ITS ---
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 Measurements Intervals [place] Rate: 77 P: 47 PA: 143 QRS: 47 QRSD: 99 T: 15 QT: 369 QTc: 418 Interpretive Statements SINUS RHYTHM POSSIBLE RIGHT VENTRICULAR CONDUCTION DELAY [RSR (QR) IN V1/V2] Compared to ECG 05/23/2024 22:59:46 Incomplete right bundle-branch block no longer present Electronically Signed On 06-12-2024 21:31:27 [employer] by Elton Morelos M.D. [email or web address]
--- NOTE | 2024-06-12 08:12 | ED_ITS ---
HPI - Recheck/Abnormal Lab/Rx 2 General: Chief Complaint: Recheck/Abnormal Lab/Rx Stated Complaint: abn labs (sent by dat) Time Seen by Provider: 06/12/24 07:54 History of Present Illness: 78-year-old male presents to the emergen cy room at the direction of his primary care doctor for abnormal lab work. Patient was recently hospitalized for posterior circulation stroke. He has been chronically anemic for the last 2 years. He is on a full-size aspirin daily after the recent stroke. He is not on any other anticoagulants. No history of GI bleed no history of hematochezia melena hematemesis or coffee-ground emesis Related Data Home Medications Medication Instructions Recorded Confirmed acetaminophen 325 mg tablet 650 mg PO QID PRN Pain 05/23/24 06/12/24 (Tylenol) amlodipine 5 mg tablet 5 mg PO DAILY 05/23/24 06/12/24 meclizine 25 mg tablet 25 mg PO BID PRN Nausea And 05/23/24 06/12/24 Vomiting Previous Rx's Medication Instructions Recorded sildenafil (pulm.hypertension) 20 20 mg PO .COMPLEX #30 tabs 12/29/23 mg tablet tamsulosin 0.4 mg capsule 0.4 mg PO BID #180 caps 12/29/23 fluticasone propionate 50 1 spray intranasal BID PRN nasal 03/13/24 mcg/actuation nasal congestion #16 grams spray,suspension (Flonase Allergy Relief) aspirin 325 mg tablet 325 mg PO DAILY #30 tabs 05/26/24 atorvastatin 40 mg tablet 40 mg PO BEDTIME #30 tabs 05/26/24 pantoprazole 40 mg tablet,delayed 40 mg PO DAILY 4 weeks #30 tabs 06/12/24 release (Protonix) Allergies Allergy/AdvReac Type Severity Reaction Status Date / Time No Known Allergies Allergy Verified 06/11/24 14:34 Review of Systems 2 Const: Denies: fever(s) or chills Card: Denies: chest pain Resp: Denies: dyspnea GI: Denies: abdominal pain : Denies: dysuria, urinary frequency or urinary urgency Musc: Denies: neck pain or back pain Skin/Breast: Denies: rash PFSH ED 2 PFSH: Medical History Vertigo Benign essential HTN Iron deficiency anemia Renal mass, right 1.3cm on CT chest 06/03 B12 deficiency anemia 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 2023 History of excision of lesion skin cancer hand H/O inguinal hernia repair right H/O knee surgery R knee arthroscopy S/P tonsillectomy S/P appendectomy History of lithotripsy Family History Mother , at age 88 Aortic aneurysm Father , in his 80's Arthritis Other AAA (abdominal aortic aneurysm) Cancer Hypertension Social History Smoking and tobacco/nicotine status: former use of tobacco/nicotine Quit status (tobacco/nicotine): has quit using Year quit tobacco: 1999 Alcohol intake: never Substance/Drug Use: never Household members: none Marital status: / Number of children: 4 Current occupational status: retired Previous occupational history: [employer] Physical Exam 2 Const: COMMON NORMALS: no acute distress GENERAL APPEARANCE: cooperative and comfortable ORIENTATION/CONSCIOUSNESS: Yes awake, Yes oriented to person, Yes oriented to place and Yes oriented to time HENMT: COMMON NORMALS: normocephalic, atraumatic and hearing grossly normal bilaterally HEAD & SCALP: normocephalic and atraumatic Resp: COMMON NORMALS: normal respiratory effort, No retractions, No use of accessory muscles and clear to auscultation bilaterally AUSCULTATION: clear to auscultation bilaterally Cardio: COMMON NORMALS: regular rate, regular rhythm and No murmurs present (Cardio) RATE: regular rate RHYTHM: regular rhythm GI: COMMON NORMALS: Soft to palpation and No hepatosplenomegaly present A USCULTATION: Yes normoactive bowel sounds PALPATION: Yes Soft to palpation, No Tenderness to palpation present (GI), No Guarding due to palpation present (GI) and Yes No hepatosplenomegaly present Extremity: COMMON NORMALS: normal to inspection, capillary refill normal, no clubbing, cyanosis or edema, no calf tenderness and no pedal edema Neuro: SENSORIUM/ORIENTATION: Yes oriented to person, Yes oriented to place and Yes oriented to time Skin: COMMON NORMALS: no rashes or lesions noted GENERAL SKIN EXAM: no rashes or lesions noted Course 2 Vital Signs: Vital signs: Vital Signs Temperature 98.4 F 06/12/24 07:53 Pulse Rate 67 06/12/24 10:39 Respiratory Rate 16 06/12/24 07:53 Blood Pressure 118/67 06/12/24 10:39 Pulse Oximetry 98 06/12/24 10:39 Oxygen Delivery Me thod Room Air 06/12/24 09:27 MDM - Recheck/Abnormal Lab/Rx Medical Decision Making Patient is chronically anemic. His vital signs are stable at this time and Hemoccult was positive. Will discharge patient home start him on pantoprazole. Will discharge from the ER or go to outpatients for transfusion of [address] Robb for the patient to have follow-up with Dr. Robb for further evaluation including endoscopy. Lab Data 06/12/24 08:10 06/12/24 08:10 Laboratory Results WBC 12.76 10^3/uL (3.29-11.43) H 06/12/24 08:10 RBC 3.19 10^6/uL (3.85-5.65) L 06/12/24 08:10 Hgb 6.20 g/dL (11.27-16.99) L* 06/12/24 08:10 Hct 23.1 % (37-53) L 06/12/24 08:10 MCV 72.4 fl (82-101) L 06/12/24 08:10 MCH 19.4 pg (27-33) L 06/12/24 08:10 MCHC 26.8 g/dL (30-55) L 06/12/24 08:10 RDW 21.7 % (12.1-15.1) H 06/12/24 08:10 Plt Count 577 10^3/cmm (157-399) H 06/12/24 08:10 MPV 8.6 fL (7.4-10.4) 06/12/24 08:10 Neut % (Auto) 83.7 % 06/12/24 08:10 Lymph % (Auto) 7.4 % 06/12/24 08:10 Jewell % (Auto) 6.6 % 06/12/24 08:10 Eos % (Auto) 1.5 % 06/12/24 08:10 Baso % (Auto) 0.3 % 06/12/24 08:10 Neut # (Auto) 10.69 10^3/uL (1.8-7.7) H 06/12/24 08:10 Lymph # (Auto) 0.9 10^3/uL (0.8-4.8) 06/12/24 08:10 Jewell # (Auto) 0.8 10^3/uL (0.2-0.9) 06/12/24 08:10 Eos # (Auto) 0.2 10^3/uL (0.0-0.8) 06/12/24 08:10 Baso # (Auto) 0.0 10^3/uL (0.0-0.1) 06/12/24 08:10 Nucleated RBC % (auto) 0 % 06/12/24 08:10 Nucleated RBCs # 0.0 /100WBC 06/12/24 08:10 PT 14.10 SECONDS (12.1-14.9) 06/12/24 08:10 INR 1.05 (0.8-1.2) 06/12/24 08:10 Sodium 137 mmol/L (136-145) 06/12/24 08:10 Potassium 4.5 mmol/L (3.5-5.1) 06/12/24 08:10 Chloride 97 mmol/L (98-107) L 06/12/24 08:10 Carbon Dioxide 26 mmol/L (22-29) 06/12/24 08:10 Anion Gap 18.5 (5-19) 06/12/24 08:10 BUN 20 mg/dL (8-23) 06/12/24 08:10 Creatinine 1.0 mg/dL (0.7-1.2) 06/12/24 08:10 GFR Calculation Not Reportable 06/12/24 08:10 Glucose 203 mg/dL (65-115) H 06/12/24 08:10 Calculated Osmolality 292 mOsm/kg (285-295) 06/12/24 08:10 Calcium 8.7 mg/dL (8.5-10.5) 06/12/24 08:10 Total Bilirubin 0.3 mg/dL (0.15-1.2) 06/12/24 08:10 AST 15 U/L (0-40) 06/12/24 08:10 ALT 13 U/L (0-41) 06/12/24 08:10 Alkaline Phosphatase 67 U/L (40-130) 06/12/24 08:10 Total Protein 6.8 g/dL (6.6-8.7) 06/12/24 08:10 Albumin 3.4 g/dL (3.5-5.2) L 06/12/24 08:10 Globulin 3.4 g/dL (1.3-4.6) 06/12/24 08:10 Blood Type A Positive 06/12/24 08:10 Rho(D) Type Rh positive 06/12/24 08:10 Antibody Screen Negative 06/12/24 08:10 No radiology studies performed this visit Discharge Plan Discharge Patient Disposition: Home Clinical Impression: Microcytic anemia Condition: Stable Prescriptions: New pantoprazole [Protonix] 40 mg tablet,delayed release (DR/EC) 40 mg PO DAILY 28 Days Qty: 30 0RF No Action sildenafil (pulm.hypertension) 20 mg tablet 20 mg PO .COMPLEX Qty: 30 0RF Rx Instructions: Take 1-5 pills 1 hour before sexual activity. Take on empty stomach tamsulosin 0.4 mg capsule 0.4 mg PO BID Qty: 180 3RF fluticasone propionate [Flonase Allergy Relief] 50 mcg/actuation spray,suspension 1 spray intranasal BID PRN (Reason: nasal congestion) Qty: 16 0RF Rx Instructions: administer into each nostril acetaminophen [Tylenol] 325 mg Tablet 650 mg PO QID PRN (Reason: Pain) amlodipine 5 mg tablet 5 mg PO DAILY meclizine 25 mg Tablet 25 mg PO BID PRN (Reason: Nausea And Vomiting) atorvastatin 40 mg Tablet 40 mg PO BEDTIME Qty: 30 0RF aspirin 325 mg Tablet 325 mg PO DAILY Qty: 30 0RF Discharge Orders: Discharge ED (Routine); Ordered 06/12/24 Ordered By: Selvin Coleman Referrals: Sweetie Sagastume MD [Primary Care Provider] - Discharge Diet: Usual diet Discharge Activity: Increase activity as tolerated Patient Instructions: Opioid Safety, Pain Management Activity Restrictions/Additional Instructions: Thank you for choosing [facility] for your healthcare needs today. It is very important that you follow up as instructed or that you return to the Emergency Department should you have concerns or if your condition changes or worsens in any way. You were seen in the emergency room with concerns about a low hemoglobin. Your vital signs are stable at this point you can be transfused as an outpatient will discharge you from the emergency room and take you to the infusion center where they were transfused 2 units of packed red blood cells. I did discuss with your primary care doctor you should follow-up with her she will make arrangements for further evaluation of your anemia which reviewing her chart appears chronic but is worsening slightly. This may be result of the aspirin you recently started after the stroke Dr. Robb will work through that issue with you. You should make a follow-up with her within the next week. For now recommend that you continue to take your aspirin daily Coding Level of Care Code ED [employer] for Savanah Hardin
[2024-06-12 08:22] LABS: Basophils % 0.3 %; Eosinophils # 0.2 10^3/uL (0.0-0.8); Eosinophils % 1.5 %; Hematocrit 23.1 % (37-53); Lymphocytes # 0.9 10^3/uL (0.8-4.8); Lymphocytes % 7.4 %; Mean Corpuscular HGB Conc 26.8 g/dL (30-55); Mean Corpuscular Hemoglobin 19.4 pg (27-33); Mean Corpuscular Volume 72.4 fl (82-101); Mean Platelet Volume 8.6 fL (7.4-10.4); Monocytes # 0.8 10^3/uL (0.2-0.9); Monocytes % 6.6 %; Neutrophils # 10.69 10^3/uL (1.8-7.7); Neutrophils % 83.7 %; Nucleated Red Blood Cells % 0 %; Platelet Count 577 10^3/cmm (157-399); Red Blood Count 3.19 10^6/uL (3.85-5.65); Red Cell Distribution Width 21.7 % (12.1-15.1); White Blood Count 12.76 10^3/uL (3.29-11.43)
[2024-06-12 08:37] LABS: INR 1.05 (0.8-1.2)
[2024-06-12 08:39] LABS: Alanine Aminotransferase 13 U/L (0-41); Albumin Level 3.4 g/dL (3.5-5.2); Alkaline Phosphatase 67 U/L (40-130); Anion Gap 18.5 (5-19); Aspartate Amino Transferase 15 U/L (0-40); Blood Urea Nitrogen 20 mg/dL (8-23); Calcium 8.7 mg/dL (8.5-10.5); Carbon Dioxide 26 mmol/L (22-29); Chloride 97 mmol/L (98-107); Creatinine Clr Calc Pharmacy 64.2441; Globulin 3.4 g/dL (1.3-4.6); Glucose 203 mg/dL (65-115); Osmolality Calculated 292 mOsm/kg (285-295); Potassium 4.5 mmol/L (3.5-5.1); Sodium 137 mmol/L (136-145); Total Bilirubin 0.3 mg/dL (0.15-1.2); Total Protein 6.8 g/dL (6.6-8.7)
[2024-06-12 09:27] VITALS: BP 109/69; PULSE 78; O2SAT 96
[2024-06-12 10:00] VITALS: BP 118/67; PULSE 77; O2SAT 92
[2024-06-12 10:39] VITALS: BP 118/67; PULSE 67; O2SAT 98
== END 2024-06-12 10:40 | disposition home or self-care (01) ==
PROVIDERS: Emergency Provider Family Medicine; PCP Family Medicine
DX: D50.9 Iron deficiency anemia, unspecified (principal); Z79.82 Long term (current) use of aspirin; Z87.891 Personal history of nicotine dependence; I10 Essential (primary) hypertension
CPT/HCPCS: 36415; 80053; 85025; 85610; 86850; 86900; 93005; 99284

== ENCOUNTER 2024-06-12 11:24 | Oncology outpatient (recurring) (ONCR) | payer MEDICARE, SELFPAY ==
[2024-06-12] VITALS (12 sets, daily range): BP systolic 115–134; BP diastolic 62–80; PULSE 72–84; RESP 17–18; TEMP 36.6–37.3; O2SAT 91–95
[2024-06-12] MEDS: acetaminophen 325 mg Tablet 650 MG PO (12:07)
[2024-06-12] MEDS: diphenhydrAMINE 25 mg Capsule PO (12:07)
[2024-06-12] MEDS: sodium chloride 0.9% 250 mL Bag IV (12:08)
== END 2024-07-10 23:59 | disposition home or self-care (01) ==
PROVIDERS: PCP Family Medicine; Visit Provider Family Medicine
DX: D50.9 Iron deficiency anemia, unspecified (principal); Z79.899 Other long term (current) drug therapy
CPT/HCPCS: 36430; 86920; J7050; P9016

== ENCOUNTER 2024-06-18 08:49 | Outpatient (CLI) | payer MEDICARE, SELFPAY ==
--- NOTE | 2024-06-18 09:30 | MR_ITS ---
WS: [id number] MRI/MRCP OF THE ABDOMEN WITHOUT GADOLINIUM ENHANCEMENT TECHNIQUE: Coronal T2 Fase BH, Axial T2 Fase BH, Axial T2 FS BH, Zxial 3D Baez BH, Axial DWI BH, 2D MRCP Radial BH, 3D MRCP (Resp), and Axial 3D Dyn BH Post sequences. CLINICAL INFORMATION: R renal mass 1.5cm on CT COMPARISON: CTA 07/21/2023 FINDINGS: Small RIGHT renal cysts. No suspicious enhancing renal lesions. No hydronephrosis in either kidney. Additional small LEFT renal cysts. Adrenal glands are normal. Large esophageal hiatal hernia . Incidental hepatic cysts. Celiac and SMA appear patent. Partially visualized fusiform infrarenal abdominal aortic aneurysm previously described on CTA 024. This can be followed up with CTA abdomen/pelvis. This is partially visualized but appears stable . MR/MR abdomen wo/w con* [id number] Impression: 1. No suspicious enhancing renal lesions. 2. Small RIGHT renal cysts. 3. Large esophageal hiatal hernia. 4. Partially visualized fusiform large infrarenal abdominal aortic aneurysm. R ecommend annual follow-up CTA.
[2024-06-18] MEDS: gadobenate dimeglumine 20 mL vial 18 ML IV (09:49)
== END 2024-06-18 08:50 | disposition home or self-care (01) ==
LOC: RAD 08:49
PROVIDERS: PCP Family Medicine; Visit Provider Family Medicine
DX: Q61.02 Congenital multiple renal cysts (principal); K44.9 Diaphragmatic hernia without obstruction or gangrene; I71.43 Infrarenal abdominal aortic aneurysm, without rupture
CPT/HCPCS: 74183

== ENCOUNTER → 2024-06-21 09:41 | Outpatient (BNVA) | payer MEDICARE, SELFPAY | PROVIDERS: PCP Family Medicine; Referring Provider Family Medicine; Visit Provider Internal Medicine Cardiovascular Disease | DX: R42 Dizziness and giddiness (principal); I63.9 Cerebral infarction, unspecified; I63.81 Other cerebral infarction due to occlusion or stenosis of small artery; Z86.73 Personal history of transient ischemic attack (TIA), and cerebral infarction without residual deficits; I47.10 Supraventricular tachycardia, unspecified | CPT/HCPCS: 93246 ==

== ENCOUNTER → 2024-09-03 09:19 | Outpatient (BNVA) | payer MEDICARE, SELFPAY | PROVIDERS: PCP Family Medicine; Visit Provider Family Medicine | DX: D50.8 Other iron deficiency anemias (principal) | CPT/HCPCS: 82270; 83550; 85025 ==

== ENCOUNTER → 2024-12-05 10:27 | Outpatient (BNVA) | payer MEDICARE, SELFPAY | PROVIDERS: PCP Family Medicine; Visit Provider Family Medicine | DX: I10 Essential (primary) hypertension (principal); K92.2 Gastrointestinal hemorrhage, unspecified; D50.8 Other iron deficiency anemias; R42 Dizziness and giddiness | CPT/HCPCS: 83540; 85025 ==

== ENCOUNTER → 2024-12-06 11:49 | Outpatient (BNVA) | payer MEDICARE, SELFPAY | PROVIDERS: PCP Family Medicine Adult Medicine; Visit Provider Psychiatry & Neurology Neurology | DX: I63.9 Cerebral infarction, unspecified (principal) | CPT/HCPCS: G0463 ==

== ENCOUNTER → 2025-03-01 11:59 | Outpatient (BNVA) | payer MEDICARE, SELFPAY | PROVIDERS: PCP Family Medicine; Visit Provider Family Medicine | DX: I10 Essential (primary) hypertension (principal); Z11.59 Encounter for screening for other viral diseases; I71.40 Abdominal aortic aneurysm, without rupture, unspecified; E78.1 Pure hyperglyceridemia; R73.01 Impaired fasting glucose; R42 Dizziness and giddiness; D50.8 Other iron deficiency anemias; I63.9 Cerebral infarction, unspecified; I63.81 Other cerebral infarction due to occlusion or stenosis of small artery | CPT/HCPCS: 80053; 80061; 83036; 85025; 86803 ==

== ENCOUNTER → 2025-07-07 10:52 | Outpatient (BNVA) | payer MEDICARE, SELFPAY | PROVIDERS: PCP Family Medicine; Visit Provider Emergency Medicine | DX: J06.9 Acute upper respiratory infection, unspecified (principal) | CPT/HCPCS: 87400; 87426 ==

== ENCOUNTER 2025-07-09 10:45 | Outpatient (CLI) | payer MEDICARE, SELFPAY ==
--- NOTE | 2025-07-09 11:00 | CTR_ITS ---
PROCEDURE INFORMATION: Exam: CTA Chest With Contrast Exam date and time: 07/09/2025 11:28 AM Age: 79 years old Clinical indication: Condition or disease; Other: Aaa; Additional info: F/u aaa TECHNIQUE: Imaging protocol: Computed tomographic angiography of the chest with contrast. Exam focused on the arteries. 3D rendering (Not supervised by radiologist): MIP and/or 3D reconstructed images were created by the technologist. Radiation optimization: All CT scans at this facility use at least one of these dose optimization techniques: automated exposure control; mA and/or kV adjustment per patient size (includes targeted exams where dose is matched to clinical indication); or iterative reconstruction. Contrast material: OMNI 350; Contrast volume: 100 ml; Contrast route: INTRAVENOUS (IV); COMPARISON: CT angio chest PE protcl [id number] 05/23/2024 4:47 PM, CT abdomen and pelvis 05/12/2022 RADIATION DOSE METRICS: Total DLP (mGy-cm): 801.95 FINDINGS: Pulmonary arteries: Normal. No pulmonary emboli. Aorta: Moderate atherosclerotic disease of the aorta and branch vessels is evident. No evidence of aneurysmal dilatation. Lungs: There are multiple 0.4 cm or less pulmonary nodules in the left lung. (series 6, image 43, 40, and 36). Subsegmental atelectasis is present in the right middle lobe. Otherwise the lungs are clear. Pleural spaces: Unremarkable. No pneumothorax. No pleural effusion. Heart: Unremarkable. No cardiomegaly. No pericardial effusion. Coronary arteries: There are coronary artery calcifications. Lymph nodes: Unremarkable. No enlarged lymph nodes. Diaphragm: There is a large hiatal hernia. Liver: There are several low-attenuation lesions in the liver which are not well characterized. There is stable compared to the prior CT. Kidneys: There is a complex cystic lesion in the right kidney measuring 1.3 cm. It is stable since 05/12/2022. Intestine: Colonic diverticulosis is present without diverticulitis. Bones/joints: Unremarkable. No acute fracture. Soft tissues: Unremarkable. CT/CT angio chest [id number] IMPRESSION: 1. No evidence of PE or aortic dissection. 2. Several pulmonary nodules 0.4 cm or less. Follow-up per Fleischner guidelines. 3. Large hiatal hernia. 4. Colonic diverticulosis is present without diverticulitis.
[2025-07-09 11:27] LABS: Blood Urea Nitrogen 20 mg/dL (8-23)
[2025-07-09] MEDS: iohexol 350 mg/mL 500 mL Btl (per mL) IV (11:29)
== END 2025-07-09 10:46 | disposition home or self-care (01) ==
LOC: RAD 10:47
PROVIDERS: PCP Family Medicine; Visit Provider Family Medicine
DX: R91.8 Other nonspecific abnormal finding of lung field (principal); I71.40 Abdominal aortic aneurysm, without rupture, unspecified; K44.9 Diaphragmatic hernia without obstruction or gangrene; K57.30 Diverticulosis of large intestine without perforation or abscess without bleeding
CPT/HCPCS: 71275; 82565; 84520